=== PATIENT | male | born 1965 | race Two or more races ===

== ENCOUNTER 2017-01-13 15:41 | Inpatient (IN) | payer OTHER ==
[2017-01-13 18:28] VITALS: BMI 22.1
--- NOTE | 2017-01-13 20:06 | HP ---
COWS - Scale Resting Pulse: 0= [place] 80 or Below Sweatin=Flushed/Facial Moisture Restless Observation: 3= Extraneous Movement Pupil Size: 1= Pupils >than Normal Bone or Joint Aches: 2= Severe Diffuse Aches Runny Nose/ Eye Tearin= Runny Nose/Eyes GI Upset > 30mins: 2= Nausea/Diarrhea Tremor Observation: 2= Slight Tremor Visible Yawning Observation: 1= 1-2x During Session Anxiety or Irritability: 2=Irritable/Anxious Goose Flesh Skin: 0=Smooth Skin COWS Score: 17 Admission ROS S - [facility] Chief Complaint: WITHDRAWAL SYMPTOMS Allergies/Adverse Reactions: Allergies Allergy/AdvReac Type Severity Reaction Status Date / Time No Known Allergies Allergy Verified 01/13/17 18:42 History of Present Illness: 51 Y.O. MAN WITH AN EXTENSIVE HISTORY OF DRUG DEPENDENCE IS SEEKING DETOX. HE WAS LAST HERE FOR DETOX IN 2013. HE STATES HE DOES NOT HAVE A SIGNIFICANT PERIOD OF SOBRIETY. Exam Limitations: No Limitations - Ebola screening Have you traveled outside of the country in the last 21 days: No (N) Have you had contact with anyone from an Ebola affected area: No Have you been sick,other than usual withdrawal symptoms: No Do you have a fever: No - Review of Systems Constitutional: Chills, Diaphoresis, Changes in sleep EENT: reports: Blurred Vision, Double Vision, Tearing Respiratory: reports: No Symptoms reported Cardiac: reports: No Symptoms Reported GI: reports: No Symptoms Reported : reports: Frequency Musculoskeletal: reports: Back Pain Integumentary: reports: Lesions Neuro: reports: Headache, Tremors Endocrine: reports: No Symptoms Reported Hematology: reports: No Symptoms Reported Psychiatric: reports: Anxious, Depressed Other Systems: Reviewed and Negative Patient History - Patient Medical History Hx Anemia: No Hx Asthma: No Hx Chronic Obstructive Pulmonary Disease (COPD): No Hx Cancer: No Hx Cardiac Disorders: No Hx Congestive Heart Failure: No Hx Hypertension: No Hx Hypercholesterolemia: No Hx Pacemaker: No HX Cerebrovascular Accident: No Hx Seizures: No Hx Dementia: No Hx Diabetes: No Hx Gastrointestinal Disorders: No Hx Liver Disease: No Hx Genitourinary Disorders: No Hx Sexually Transmitted Disorders: Yes (gonorrhea) Hx Renal Disease (ESRD): No Hx Thyroid Disease: No Hx Human Immunodeficiency Virus (HIV): No Hx Hepatitis C: Yes (COMPLETED [place] ) Hx Depression: Yes Hx Suicide Attempt: No Hx Bipolar Disorder: Yes (NOT ON MEDS ) Hx Schizophrenia: No - Patient Surgical History Past Surgical History: Yes Hx Neurologic Surgery: No Hx Cataract Extraction: No Hx Cardiac Surgery: No Hx Lung Surgery: No Hx Breast Surgery: No Hx Breast Biopsy: No Hx Abdominal Surgery: No Hx Appendectomy: No Hx Cholecystectomy: No Hx Genitourinary Surgery: No Hx Section: No Hx Orthopedic Surgery: No Other Surgical History: laceration, left side of neck Anesthesia Reaction: No - PPD History Previous Implant?: Yes Documented Results: Negative w/o proof PPD to be Administered?: Yes - Reproductive History Patient is a Female of Child Bearing Age (11 -55 yrs old): No - Smoking Cessation Smoking history: Current every day smoker Have you smoked in the past 12 months: Yes Aproximately how many cigarettes per day: 20 Cigars Per Day: 0 Hx Chewing Tobacco Use: No Initiated information on smoking cessation: Yes 'Breaking Loose' booklet given: 01/13/17 - Substance & Tx. History Hx Alcohol Use: No Hx Substance Use: Yes Substance Use Type: Heroin Hx Substance Use Treatment: Yes - Substances Abused Heroin Route: Inhalation Frequency: Daily Amount used: 20 BAGS Age of first use: 16 Date of Last Use: 01/13/17 Family Disease History - Family Disease History Family Disease History: Diabetes: Sister, Heart Disease: Sister Admission Physical Exam [facility] - Vital Signs Vital Signs: Vital Signs - 24 hr 01/13/17 18:26 Temperature 97.8 F Pulse Rate 62 Respiratory 20 Rate Blood Pressure 116/64 - Physical General Appearance: Yes: Disheveled, Tremorous, Anxious HEENTM: Yes: Normocephalic, Normal Voice Respiratory: Yes: Chest Non-Tender, Lungs Clear, Normal Breath Sounds, No Respiratory Distress, No Accessory Muscle Use Neck: Yes: No masses,lesions,Nodules, Trachea in good position Breast: Yes: Breast Exam Deferred Cardiology: Yes: Regular Rhythm, Regular Rate, S1, S2 Abdominal: Yes: Normal Bowel Sounds, Non Tender, Flat, Soft Genitourinary: Yes: Within Normal Limits Back: Yes: Normal Inspection Musculoskeletal: Yes: Gait Steady, Back pain Extremities: Yes: Normal Range of Motion, Non-Tender, Tremors Neurological: Yes: Alert, Normal Mood/Affect, Normal Response Integumentary: Yes: Normal Color, Dry, Warm Lymphatic: Yes: Within Normal Limits - Diagnostic (1) Heroin dependence Current Visit: Yes Status: Chronic (2) History of hepatitis C virus infection Current Visit: No Status: Resolved Cleared for Admission [facility] - Detox or Rehab [facility] Level of Care: Medically Managed Detox Regimen/Protocol: Methadone [facility] Breath Alcohol Content Breath Alcohol Content: 0 Urine Drug Screen - Results Drug Screen Negative: No Urine Drug Screen Results: OPI-Opiates, OXY-Oxycodone
[2017-01-13] MEDS ORDERED: MAGNESIUM CITRATE 300 ML BOTTLE PO PRN (20:12)
[2017-01-13] MEDS ORDERED: hydrOXYzine PAMOATE 50 MG CAPSULE (FP) PO PRN (20:12)
[2017-01-13] MEDS ORDERED: LOPERAMIDE HCL 2 MG CAPSULE PO PRN (20:12)
[2017-01-13] MEDS ORDERED: NICOTINE POLACRILEX 2 MG GUM BC PRN (20:12)
[2017-01-13] MEDS ORDERED: MAG HYDROX/AL HYDROX/SIMETH 30 ML UNIT-DOSE CUP PO PRN (20:12)
[2017-01-13] MEDS ORDERED: guaiFENesin/D-METHORPHAN HB 10 ML UNIT-DOSE CUPS PO PRN (20:12)
[2017-01-13] MEDS ORDERED: IBUPROFEN 400 MG TABLET (FP) PO PRN (20:12)
[2017-01-13] MEDS ORDERED: MAGNESIUM HYDROX 2400MG/30ML ORAL SUSPENSION 30 ML CUP PO PRN (20:12)
[2017-01-13] MEDS ORDERED: METHADONE HCL 10 MG TABLET (FOR DETOX USE ONLY) PO ONE ×2 (20:12→23:00)
[2017-01-13] MEDS ORDERED: P-EPHED 60MG/TRIPROLIDI 2.5MG TABLET PO PRN (20:12)
[2017-01-13] MEDS ORDERED: diphenhydrAMINE HCL 50 MG CAPSULE PO PRN (20:12)
[2017-01-13] MEDS ORDERED: MENTHOL/PHENOL 1 EACH UD MM PRN (20:12)
[2017-01-13] MEDS ORDERED: ACETAMINOPHEN 325 MG TABLET (FP) PO PRN (20:12)
[2017-01-13] MEDS ORDERED: METHADONE HCL 10 MG TABLET (FOR DETOX USE ONLY) ONE (22:45)
[2017-01-13] MEDS: diazePAM 5 MG TABLET PO PRN (22:48)
[2017-01-13] MEDS: THIAMINE HCL 100 MG TABLET (FP) PO SCH (22:48)
[2017-01-14] MEDS: diazePAM 5 MG TABLET PO PRN (05:36)
[2017-01-14] MEDS ORDERED: METHADONE HCL 10 MG TABLET (FOR DETOX USE ONLY) PO ONE (10:00)
[2017-01-14 10:03] LABS: MCHC 33.6 g/dl (32.0-35.9); MEAN CELL VOLUME 89.2 fl (80-96); MEAN PLT VOLUME 8.8 fl (7.5-11.1); PLATELET COUNT 141 K/MM3 (134-434); RDW 13.5 % (11.9-15.9); WHITE BLOOD COUNT 2.9 K/mm3 (4.0-10.0)
[2017-01-14] MEDS: PRENATAL VITAMINS W/ FOLIC ACID TABLET (FP) PO SCH (10:37)
[2017-01-14 10:39] LABS: ALBUMIN 3.5 g/dl (3.4-5.0); ALK PHOS 113 U/L (45-117); ANION GAP 14 (8-16); BILIRUBIN,TOTAL 0.4 mg/dL (0.2-1.0); CALCIUM 8.9 mg/dL (8.5-10.1); CO2 23 mmol/L (21-32); CREATININE 1.1 mg/dL (0.7-1.3); GLUCOSE,RANDOM 175 mg/dL (74-106); SGOT/AST 114 U/L (15-37); SGPT/ALT 176 U/L (12-78); TOT PROT 7.7 g/dl (6.4-8.2)
[2017-01-14] MEDS ORDERED: POTASSIUM CHLORIDE TABS 20 MEQ TABLET.ER (FP) PO ONE (11:03)
--- NOTE | 2017-01-14 11:03 | PN ---
S COWS - Scale Resting Pulse: 1= [place] 81-100 Sweatin= Chills/Flushing Restless Observation: 3= Extraneous Movement Pupil Size: 2= Moderately Dilated Bone or Joint Aches: 4=Acute Joint/Muscle Pain Runny Nose/ Eye Tearin= Nasal Congestion GI Upset > 30mins: 1= Stomach Cramp Tremor Observation of Outstretched Hands: 1= Tremor [place], Not Seen Yawning Observation: 1= 1-2x During Session Anxiety or Irritability: 2=Irritable/Anxious Goose Flesh Skin: 0=Smooth Skin COWS Score: 17 S Progress Note (SOAP) Subjective: ANXIETY,SWEATS,RESTLESSNESS,INTERMITTENT SLEEP. Objective: 01/14/17 11:02 Vital Signs Temperature 97.8 F 01/14/17 09:33 Pulse Rate 84 01/14/17 09:33 Respiratory Rate 20 01/14/17 09:33 Blood Pressure 148/94 01/14/17 09:33 O2 Sat by Pulse Oximetry (%) Laboratory Last Values WBC 2.9 K/mm3 (4.0-10.0) L 01/14/17 07:00 RBC 4.72 M/mm3 (4.00-5.60) 01/14/17 07:00 Hgb 14.1 GM/dL (11.7-16.9) 01/14/17 07:00 Hct 42.1 % (35.4-49) 01/14/17 07:00 MCV 89.2 fl (80-96) 01/14/17 07:00 MCHC 33.6 g/dl (32.0-35.9) 01/14/17 07:00 RDW 13.5 % (11.9-15.9) 01/14/17 07:00 Plt Count 141 K/MM3 (134-434) D 01/14/17 07:00 MPV 8.8 fl (7.5-11.1) 01/14/17 07:00 Sodium 142 mmol/L (136-145) 01/14/17 07:00 Potassium 3.4 mmol/L (3.5-5.1) L D 01/14/17 07:00 Chloride 105 mmol/L (98-107) 01/14/17 07:00 Carbon Dioxide 23 mmol/L (21-32) D 01/14/17 07:00 Anion Gap 14 (8-16) 01/14/17 07:00 BUN 16 mg/dL (7-18) 01/14/17 07:00 Creatinine 1.1 mg/dL (0.7-1.3) 01/14/17 07:00 Creat Clearance w eGFR > 60 (>60) 01/14/17 07:00 Random Glucose 175 mg/dL (74-106) H D 01/14/17 07:00 Calcium 8.9 mg/dL (8.5-10.1) 01/14/17 07:00 Total Bilirubin 0.4 mg/dL (0.2-1.0) 01/14/17 07:00 AST 114 U/L (15-37) H D 01/14/17 07:00 ALT 176 U/L (12-78) H D 01/14/17 07:00 Alkaline Phosphatase 113 U/L (45-117) D 01/14/17 07:00 Total Protein 7.7 g/dl (6.4-8.2) 01/14/17 07:00 Albumin 3.5 g/dl (3.4-5.0) 01/14/17 07:00 K+=3.4 Assessment: 01/14/17 11:03 WITHDRAWAL SX BORDERLINE HYPOKALEMIA Plan: CONTINUE DETOX [facility]UR DIRECTED
--- NOTE | 2017-01-14 13:33 | CONSULT ---
[facility] Psychiatric Consult - Data Date of interview: 01/14/17 Admission source: [facility]
--- NOTE | 2017-01-14 13:42 | EKG ---
Test Reason : Blood Pressure : / mmHG Vent. Rate : 056 BPM Atrial Rate : 056 BPM P-R Int : 228 ms QRS Dur : 080 ms QT Int : 432 ms P-R-T Axes : 075 060 045 degrees QTc Int : 416 ms SINUS BRADYCARDIA WITH 1ST DEGREE A-V BLOCK OTHERWISE NORMAL ECG NO PREVIOUS ECGS AVAILABLE Confirmed by SAMM HERRERA, SAVANNAH ([id number]) on 01/14/2017 1:42:06 PM Referred By: Nelson Swartz Confirmed By:SAVANNAH QUIJANO MD
--- NOTE | 2017-01-14 16:09 | CONSULT ---
[facility] Psychiatric Consult - Data Date of interview: 01/14/17 Admission source: [facility] Identifying data: Readmission to [facility] for this 51 y/o [place] male seeking detox treatment for alcohol and heroin dependence.Patient is single ( common-law spouse),a father of one,domiciled,unemployed and supported on SSI benefits. Substance Abuse History: - Smoking Cessation. Smoking history: Current every day smoker. Have you smoked in the past 12 months: Yes. Aproximately how many cigarettes per day: 20. Cigars Per Day: 0. Hx Chewing Tobacco Use: No. Initiated information on smoking cessation: Yes. 'Breaking Loose' booklet given : 01/13/17. - Substance & Tx. History. Hx Alcohol Use: No. Hx Substance Use: Yes. Substance Use Type: Heroin. Hx Substance Use Treatment: Yes. - Substances Abused. Heroin. Route: Inhalation. Frequency: Daily. Amount used: 20 BAGS. Age of first use: 16. Date of Last Use: 01/13/17. Confirmed by patient. Medical History: Arthritis,hepatitis C and a history of treatment for gonorrhea. Psychiatric History: Patient denies history of psychiatric hospitalizations but, on the other hand,he reports exposure to psychiatric treatment during his incarceration some years ago.Mr Arsen states that he was diagnosed with schizophrenia/prescribed zyprexa 5 mg/hs + ambien 10 mg/hs.No connection with OPD care providers at this time.Precarious situation for a regular follow up.Patient denies history of suicide attempts. Physical/Sexual Abuse/Trauma History: Patient denies. Additional Comment: Urine Drug Screen Results: OPI-Opiates, OXY-Oxycodone.Noted. Mental Status Exam - Mental Status Exam Alert and Oriented to: Time, Place, Person Cognitive Function: Good Patient Appearance: Well Groomed Mood: Nervous, Anxious, Apprehensive Affect: Mood Congruent, Constricted Patient Behavior: Fatigued, Appropriate, Cooperative Speech Pattern: Clear Voice Loudness: Normal Thought Process: Goal Oriented Hallucinations: Denies Suicidal Ideation: Denies Homicidal Ideation: Denies Insight/Judgement: Poor Sleep: Poorly, Difficulty falling asleep Appetite: Good Muscle strength/Tone: Normal Gait/Station: Normal Psychiatric Findings - Problem List ([place] 1, 2,3) (1) Heroin dependence Current Visit: Yes Status: Chronic (2) Nicotine dependence Current Visit: Yes Status: Acute (3) Schizophrenia, paranoid type Current Visit: Yes Status: Chronic (4) Insomnia Current Visit: Yes Status: Acute - Initial Treatment Plan Initial Treatment Plan: Psychoeducation.Detoxification.Medications : zyprexa 5 mg po hs + zolpidem 10 mg po hs prn.Side effects/benefits of each drug discussed with the patient.He agrees with this plan of care.Observation.
[2017-01-14 18:47] LABS: URINE APPEARANCE CLEAR; URINE BILIRUBIN NEGATIVE (NEGATIVE); URINE BLOOD NEGATIVE (NEGATIVE); URINE COLOR DKYELLOW; URINE GLUCOSE (UA) NEGATIVE (NEGATIVE); URINE KETONE NEGATIVE (NEGATIVE); URINE LEUK ESTERASE NEGATIVE (NEGATIVE); URINE NITRITE NEGATIVE (NEGATIVE); URINE PROTEIN NEGATIVE (NEGATIVE); URINE UROBILINOGEN 4.0 E.U/dl E.U./dl (0.2-1.0)
[2017-01-14] MEDS: POTASSIUM CHLORIDE TABS 20 MEQ TABLET.ER (FP) PO SCH (22:40)
[2017-01-14] MEDS: OLANZapine 5 MG TABLET PO SCH (22:40)
[2017-01-14] MEDS: ZOLPIDEM TARTRATE 10 MG TABLET (PARK CARE ONLY) PO PRN (22:40)
[2017-01-14] MEDS: THIAMINE HCL 100 MG TABLET (FP) PO SCH (22:40)
[2017-01-15] MEDS: diazePAM 5 MG TABLET PO PRN (06:25)
[2017-01-15] MEDS ORDERED: METHADONE HCL 5 MG TABLET (FOR DETOX USE ONLY) PO ONE (10:00)
[2017-01-15] MEDS: PRENATAL VITAMINS W/ FOLIC ACID TABLET (FP) PO SCH (10:52)
[2017-01-15] MEDS: POTASSIUM CHLORIDE TABS 20 MEQ TABLET.ER (FP) PO SCH ×2 (10:52→22:53)
--- NOTE | 2017-01-15 12:08 | PN ---
[facility] COWS - Scale Resting Pulse: 0= [place] 80 or Below Sweatin= Chills/Flushing Restless Observation: 3= Extraneous Movement Pupil Size: 2= Moderately Dilated Bone or Joint Aches: 4=Acute Joint/Muscle Pain Runny Nose/ Eye Tearin= Nasal Congestion GI Upset > 30mins: 1= Stomach Cramp Tremor Observation of Outstretched Hands: 2= Slight Tremor Visible Yawning Observation: 1= 1-2x During Session Anxiety or Irritability: 2=Irritable/Anxious Goose Flesh Skin: 0=Smooth Skin COWS Score: 17 BHS Progress Note (SOAP) Subjective: ANXIETY,SWEATS,CHILLS. Objective: 01/15/17 12:07 Vital Signs Temperature 98.8 F 01/15/17 09:03 Pulse Rate 64 01/15/17 09:03 Respiratory Rate 20 01/15/17 09:03 Blood Pressure 111/71 01/15/17 09:03 O2 Sat by Pulse Oximetry (%) Laboratory Last Values WBC 2.9 K/mm3 (4.0-10.0) L 01/14/17 07:00 RBC 4.72 M/mm3 (4.00-5.60) 01/14/17 07:00 Hgb 14.1 GM/dL (11.7-16.9) 01/14/17 07:00 Hct 42.1 % (35.4-49) 01/14/17 07:00 MCV 89.2 fl (80-96) 01/14/17 07:00 MCHC 33.6 g/dl (32.0-35.9) 01/14/17 07:00 RDW 13.5 % (11.9-15.9) 01/14/17 07:00 Plt Count 141 K/MM3 (134-434) D 01/14/17 07:00 MPV 8.8 fl (7.5-11.1) 01/14/17 07:00 Sodium 142 mmol/L (136-145) 01/14/17 07:00 Potassium 3.4 mmol/L (3.5-5.1) L D 01/14/17 07:00 Chloride 105 mmol/L (98-107) 01/14/17 07:00 Carbon Dioxide 23 mmol/L (21-32) D 01/14/17 07:00 Anion Gap 14 (8-16) 01/14/17 07:00 BUN 16 mg/dL (7-18) 01/14/17 07:00 Creatinine 1.1 mg/dL (0.7-1.3) 01/14/17 07:00 Creat Clearance w eGFR > 60 (>60) 01/14/17 07:00 Random Glucose 175 mg/dL (74-106) H D 01/14/17 07:00 Calcium 8.9 mg/dL (8.5-10.1) 01/14/17 07:00 Total Bilirubin 0.4 mg/dL (0.2-1.0) 01/14/17 07:00 AST 114 U/L (15-37) H D 01/14/17 07:00 ALT 176 U/L (12-78) H D 01/14/17 07:00 Alkaline Phosphatase 113 U/L (45-117) D 01/14/17 07:00 Total Protein 7.7 g/dl (6.4-8.2) 01/14/17 07:00 Albumin 3.5 g/dl (3.4-5.0) 01/14/17 07:00 Urine Color Dkyellow 01/14/17 13:20 Urine Appearance Clear 01/14/17 13:20 Urine pH 6.0 (5.0-8.0) 01/14/17 13:20 Ur Specific [place] 1.024 (1.001-1.035) 01/14/17 13:20 Urine Protein Negative (NEGATIVE) 01/14/17 13:20 Urine Glucose (UA) Negative (NEGATIVE) 01/14/17 13:20 Urine Ketones Negative (NEGATIVE) 01/14/17 13:20 Urine Blood Negative (NEGATIVE) 01/14/17 13:20 Urine Nitrite Negative (NEGATIVE) 01/14/17 13:20 Urine Bilirubin Negative (NEGATIVE) 01/14/17 13:20 Urine Urobilinogen 4.0 e.u/dl E.U./dl (0.2-1.0) 01/14/17 13:20 Ur Leukocyte Esterase Negative (NEGATIVE) 01/14/17 13:20 RPR Titer Nonreactive (NONREACTIVE) D 01/14/17 07:00 Assessment: 01/15/17 12:07 WITHDRAWAL SX Plan: CONTINUE DETOX
[2017-01-15] MEDS: OLANZapine 5 MG TABLET PO SCH (22:53)
[2017-01-15] MEDS: THIAMINE HCL 100 MG TABLET (FP) PO SCH (22:53)
[2017-01-15] MEDS: ZOLPIDEM TARTRATE 10 MG TABLET (PARK CARE ONLY) PO PRN (22:54)
--- NOTE | 2017-01-16 09:46 | PN ---
BHS Progress Note (SOAP) Subjective: Sweating,interrupted sleep,restless Objective: 01/16/17 09:44 Vital Signs - 8 hr 01/16/17 01/16/17 01/16/17 04:00 06:43 09:27 Temperature 97.1 F L 97.8 F Pulse Rate 61 76 Respiratory 18 18 18 Rate Blood Pressure 109/73 101/67 Laboratory Tests 01/14/17 01/14/17 01/14/17 07:00 07:00 07:00 WBC 2.9 L RBC 4.72 Hgb 14.1 Hct 42.1 MCV 89.2 MCHC 33.6 RDW 13.5 Plt Count 141 D MPV 8.8 Sodium 142 Potassium 3.4 L D Chloride 105 Carbon Dioxide 23 D Anion Gap 14 BUN 16 Creatinine 1.1 Creat Clearance w eGFR > 60 Random Glucose 175 H D Calcium 8.9 Total Bilirubin 0.4 AST 114 H D ALT 176 H D Alkaline Phosphatase 113 D Total Protein 7.7 Albumin 3.5 Urine Color Urine Appearance Urine pH Ur Specific [place] Urine Protein Urine Glucose (UA) Urine Ketones Urine Blood Urine Nitrite Urine Bilirubin Urine Urobilinogen Ur Leukocyte Esterase RPR Titer Nonreactive D 01/14/17 13:20 WBC RBC Hgb Hct MCV MCHC RDW Plt Count MPV Sodium Potassium Chloride Carbon Dioxide Anion Gap BUN Creatinine Creat Clearance w eGFR Random Glucose Calcium Total Bilirubin AST ALT Alkaline Phosphatase Total Protein Albumin Urine Color Dkyellow Urine Appearance Clear Urine pH 6.0 Ur Specific [place] 1.024 Urine Protein Negative Urine Glucose (UA) Negative Urine Ketones Negative Urine Blood Negative Urine Nitrite Negative Urine Bilirubin Negative Urine Urobilinogen 4.0 e.u/dl Ur Leukocyte Esterase Negative RPR Titer Labs noted, k-dur noted Assessment: 01/16/17 09:45 Withdrawal sx Plan: Continue detox
[2017-01-16] MEDS ORDERED: METHADONE HCL 5 MG TABLET (FOR DETOX USE ONLY) PO ONE (10:00)
[2017-01-16] MEDS: POTASSIUM CHLORIDE TABS 20 MEQ TABLET.ER (FP) PO SCH ×2 (10:44→22:55)
[2017-01-16] MEDS: PRENATAL VITAMINS W/ FOLIC ACID TABLET (FP) PO SCH (10:44)
[2017-01-16] MEDS: THIAMINE HCL 100 MG TABLET (FP) PO SCH (22:54)
[2017-01-16] MEDS: OLANZapine 5 MG TABLET PO SCH (22:55)
[2017-01-16] MEDS: ZOLPIDEM TARTRATE 10 MG TABLET (PARK CARE ONLY) PO PRN (22:55)
[2017-01-17] MEDS ORDERED: METHADONE HCL 10 MG TABLET (FOR DETOX USE ONLY) PO ONE (10:00)
[2017-01-17] MEDS: PRENATAL VITAMINS W/ FOLIC ACID TABLET (FP) PO SCH (10:38)
--- NOTE | 2017-01-17 14:21 | PN ---
BHS Progress Note (SOAP) Subjective: Interrupted sleep, Body Aches, Sweating, Tremors, H/A. Objective: PT. A & O X (DISORIENTED ABOUT DAY / DATE). PT. OBSERVED AMBULATING ON UNIT. 01/17/17 14:18 Vital Signs Temperature 96.8 F L 01/17/17 13:58 Pulse Rate 85 01/17/17 13:58 Respiratory Rate 18 01/17/17 13:58 Blood Pressure 110/72 01/17/17 13:58 O2 Sat by Pulse Oximetry (%) Laboratory Last Values WBC 2.9 K/mm3 (4.0-10.0) L 01/14/17 07:00 RBC 4.72 M/mm3 (4.00-5.60) 01/14/17 07:00 Hgb 14.1 GM/dL (11.7-16.9) 01/14/17 07:00 Hct 42.1 % (35.4-49) 01/14/17 07:00 MCV 89.2 fl (80-96) 01/14/17 07:00 MCHC 33.6 g/dl (32.0-35.9) 01/14/17 07:00 RDW 13.5 % (11.9-15.9) 01/14/17 07:00 Plt Count 141 K/MM3 (134-434) D 01/14/17 07:00 MPV 8.8 fl (7.5-11.1) 01/14/17 07:00 Sodium 142 mmol/L (136-145) 01/14/17 07:00 Potassium 3.4 mmol/L (3.5-5.1) L D 01/14/17 07:00 Chloride 105 mmol/L (98-107) 01/14/17 07:00 Carbon Dioxide 23 mmol/L (21-32) D 01/14/17 07:00 Anion Gap 14 (8-16) 01/14/17 07:00 BUN 16 mg/dL (7-18) 01/14/17 07:00 Creatinine 1.1 mg/dL (0.7-1.3) 01/14/17 07:00 Creat Clearance w eGFR > 60 (>60) 01/14/17 07:00 Random Glucose 175 mg/dL (74-106) H D 01/14/17 07:00 Calcium 8.9 mg/dL (8.5-10.1) 01/14/17 07:00 Total Bilirubin 0.4 mg/dL (0.2-1.0) 01/14/17 07:00 AST 114 U/L (15-37) H D 01/14/17 07:00 ALT 176 U/L (12-78) H D 01/14/17 07:00 Alkaline Phosphatase 113 U/L (45-117) D 01/14/17 07:00 Total Protein 7.7 g/dl (6.4-8.2) 01/14/17 07:00 Albumin 3.5 g/dl (3.4-5.0) 01/14/17 07:00 Urine Color Dkyellow 01/14/17 13:20 Urine Appearance Clear 01/14/17 13:20 Urine pH 6.0 (5.0-8.0) 01/14/17 13:20 Ur Specific [place] 1.024 (1.001-1.035) 01/14/17 13:20 Urine Protein Negative (NEGATIVE) 01/14/17 13:20 Urine Glucose (UA) Negative (NEGATIVE) 01/14/17 13:20 Urine Ketones Negative (NEGATIVE) 01/14/17 13:20 Urine Blood Negative (NEGATIVE) 01/14/17 13:20 Urine Nitrite Negative (NEGATIVE) 01/14/17 13:20 Urine Bilirubin Negative (NEGATIVE) 01/14/17 13:20 Urine Urobilinogen 4.0 e.u/dl E.U./dl (0.2-1.0) 01/14/17 13:20 Ur Leukocyte Esterase Negative (NEGATIVE) 01/14/17 13:20 RPR Titer Nonreactive (NONREACTIVE) D 01/14/17 07:00 LABS NOTED. 01/17/17 14:20 Assessment: 01/17/17 14:19 WITHDRAWAL SYMPTOMS. Plan: CONTINUE DETOX. K, 20 MEQ X 1 NOW AND THEN BID AFTER. ADVISED PATIENT TO FOLLOW-UP WITH [employer] / REHAB MEDICAL PROVIDER AFTER DISCHARGE FROM DETOX FOR GENERAL MEDICAL ASSESSMENT AND FOR ANY ABNORMAL ADMISSION LAB VALUES.
[2017-01-17] MEDS ORDERED: POTASSIUM CHLORIDE TABS 20 MEQ TABLET.ER (FP) PO ONE (15:00)
[2017-01-17] MEDS ORDERED: POTASSIUM CHLORIDE TABS 20 MEQ TABLET.ER (FP) PO SCH (22:00)
[2017-01-17] MEDS: OLANZapine 5 MG TABLET PO SCH (22:33)
[2017-01-17] MEDS: THIAMINE HCL 100 MG TABLET (FP) PO SCH (22:33)
[2017-01-18] MEDS ORDERED: METHADONE HCL 5 MG TABLET (FOR DETOX USE ONLY) PO ONE (06:00)
[2017-01-18 06:47] VITALS: BP 108/67; PULSE 63; TEMP 96.7
--- NOTE | 2017-01-18 16:05 | DS ---
[facility] Detox Discharge Summary Admission Date: 01/13/17 Discharge Date: 01/18/17 - History Present History: Opioid Dependence Additional Comments: ADVISED PATIENT TO FOLLOW-UP WITH [facility] / REHAB MEDICAL PROVIDER AFTER DISCHARGE FROM DETOX FOR GENERAL MEDICAL ASSESSMENT AND FOR ABNORMAL ADMISSION LAB VALUES. Pertinent Past History: Hep C (Treated), Depression, Bi-Polar disorder. - Physical Exam Results Vital Signs: Vital Signs Temperature 96.7 F L 01/18/17 06:46 Pulse Rate 63 01/18/17 06:46 Respiratory Rate 18 01/18/17 06:46 Blood Pressure 108/67 01/18/17 06:46 O2 Sat by Pulse Oximetry (%) Pertinent Admission Physical Exam Findings: WITHDRAWAL SYMPTOMS. Laboratory Last Values WBC 2.9 K/mm3 (4.0-10.0) L 01/14/17 07:00 RBC 4.72 M/mm3 (4.00-5.60) 01/14/17 07:00 Hgb 14.1 GM/dL (11.7-16.9) 01/14/17 07:00 Hct 42.1 % (35.4-49) 01/14/17 07:00 MCV 89.2 fl (80-96) 01/14/17 07:00 MCHC 33.6 g/dl (32.0-35.9) 01/14/17 07:00 RDW 13.5 % (11.9-15.9) 01/14/17 07:00 Plt Count 141 K/MM3 (134-434) D 01/14/17 07:00 MPV 8.8 fl (7.5-11.1) 01/14/17 07:00 Sodium 142 mmol/L (136-145) 01/14/17 07:00 Potassium 3.4 mmol/L (3.5-5.1) L D 01/14/17 07:00 Chloride 105 mmol/L (98-107) 01/14/17 07:00 Carbon Dioxide 23 mmol/L (21-32) D 01/14/17 07:00 Anion Gap 14 (8-16) 01/14/17 07:00 BUN 16 mg/dL (7-18) 01/14/17 07:00 Creatinine 1.1 mg/dL (0.7-1.3) 01/14/17 07:00 Creat Clearance w eGFR > 60 (>60) 01/14/17 07:00 Random Glucose 175 mg/dL (74-106) H D 01/14/17 07:00 Calcium 8.9 mg/dL (8.5-10.1) 01/14/17 07:00 Total Bilirubin 0.4 mg/dL (0.2-1.0) 01/14/17 07:00 AST 114 U/L (15-37) H D 01/14/17 07:00 ALT 176 U/L (12-78) H D 01/14/17 07:00 Alkaline Phosphatase 113 U/L (45-117) D 01/14/17 07:00 Total Protein 7.7 g/dl (6.4-8.2) 01/14/17 07:00 Albumin 3.5 g/dl (3.4-5.0) 01/14/17 07:00 Urine Color Dkyellow 01/14/17 13:20 Urine Appearance Clear 01/14/17 13:20 Urine pH 6.0 (5.0-8.0) 01/14/17 13:20 Ur Specific [place] 1.024 (1.001-1.035) 01/14/17 13:20 Urine Protein Negative (NEGATIVE) 01/14/17 13:20 Urine Glucose (UA) Negative (NEGATIVE) 01/14/17 13:20 Urine Ketones Negative (NEGATIVE) 01/14/17 13:20 Urine Blood Negative (NEGATIVE) 01/14/17 13:20 Urine Nitrite Negative (NEGATIVE) 01/14/17 13:20 Urine Bilirubin Negative (NEGATIVE) 01/14/17 13:20 Urine Urobilinogen 4.0 e.u/dl E.U./dl (0.2-1.0) 01/14/17 13:20 Ur Leukocyte Esterase Negative (NEGATIVE) 01/14/17 13:20 RPR Titer Nonreactive (NONREACTIVE) D 01/14/17 07:00 LABS NOTED. - Treatment Hospital Course: Detox Protocol Followed, Detoxed Safely, Responded well, Discharged Condition Good Patient has Accepted a Rehab Referral to: NO - PATIENT ELECTING TO GO HOME. 12- STEP/NA PROGRAMS RECOMENDED. - Medication Discharge Medications: Ambulatory Orders Olanzapine [Zyprexa -] 5 mg PO DAILY #30 tablet 07/12/14 Olanzapine [Zyprexa -] 5 mg PO HS #30 tablet 01/14/17 - Diagnosis (1) Insomnia Status: Chronic Qualifiers: Insomnia type: unspecified Qualified Code(s): G47.00 - Insomnia, unspecified (2) Nicotine dependence Status: Chronic Qualifiers: Nicotine product type: cigarettes Substance use status: uncomplicated Qualified Code(s): F17.210 - Nicotine dependence, cigarettes, uncomplicated (3) Schizophrenia, paranoid type Status: Chronic (4) Opioid dependence with withdrawal Status: Acute - AMA Did Patient Leave Against Medical Advice: No
== END 2017-01-18 09:03 | disposition home or self-care (01) | DRG 773 ==
LOC: YASAS 15:41 → Y3N 19:10
PROVIDERS: ADMIT Internal Medicine; ATTEND Internal Medicine
PROC: HZ2ZZZZ Detoxification Services for Substance Abuse Treatment (ICD-10-PCS; principal; 2017-01-18)
DX: F11.23 Opioid dependence with withdrawal (principal); F17.210 Nicotine dependence, cigarettes, uncomplicated; F20.0 Paranoid schizophrenia; F31.9 Bipolar disorder, unspecified; F34.1 Dysthymic disorder; G47.00 Insomnia, unspecified; B18.2 Chronic viral hepatitis C; Z86.19 Personal history of other infectious and parasitic diseases
CPT/HCPCS: 36415; 80053; 81003; 85027; 86593; 93005; 93010

== ENCOUNTER 2017-03-11 09:47 | Inpatient (IN) | payer OTHER ==
[2017-03-11 10:03] VITALS: BMI 21.2
--- NOTE | 2017-03-11 12:41 | HP ---
COWS - Scale Resting Pulse: 1= [place] 81-100 Sweatin= Chills/Flushing Restless Observation: 3= Extraneous Movement Pupil Size: 2= Moderately Dilated Bone or Joint Aches: 4=Acute Joint/Muscle Pain Runny Nose/ Eye Tearin= Runny Nose/Eyes GI Upset > 30mins: 1= Stomach Cramp Tremor Observation: 2= Slight Tremor Visible Yawning Observation: 1= 1-2x During Session Anxiety or Irritability: 1=Feels Anxious/Irritable Goose Flesh Skin: 0=Smooth Skin COWS Score: 18 Admission ROS BHS - HPI Chief Complaint: DETOX TX FOR HEROIN DEPENDENCE Allergies/Adverse Reactions: Allergies Allergy/AdvReac Type Severity Reaction Status Date / Time No Known Allergies Allergy Verified 03/11/17 10:31 History of Present Illness: 51 Y/O H/MALE WITH A HX OF HEROIN DEPENDENCE SEEKING DETOX [place] Exam Limitations: No Limitations - Ebola screening Have you traveled outside of the country in the last 21 days: No Have you had contact with anyone from an Ebola affected area: No Have you been sick,other than usual withdrawal symptoms: No - Review of Systems Constitutional: Chills, Loss of Appetite, Night Sweats, Changes in sleep, Unintentional Wgt. Loss EENT: reports: Blurred Vision, Tearing, Nose Congestion, Dental Problems ( MISSING TEETH) Respiratory: reports: Cough, Productive cough (YELLOW PHLEGM) Cardiac: reports: Lightheadedness GI: reports: Diarrhea, Nausea, Poor Appetite, Vomiting : reports: No Symptoms Reported Musculoskeletal: reports: Back Pain, Joint Pain, Muscle Pain Integumentary: reports: Rash (GENERALIZED HEALED DARK SPOTS.) Neuro: reports: Headache, Tremors, Dizziness Endocrine: reports: No Symptoms Reported Hematology: reports: No Symptoms Reported Psychiatric: reports: No Sypmtoms Reported, Agitated, Anxious Other Systems: Reviewed and Negative Patient History - Patient Medical History Hx Anemia: No Hx Asthma: No Hx Chronic Obstructive Pulmonary Disease (COPD): No Hx Cancer: No Hx Cardiac Disorders: No Hx Congestive Heart Failure: No Hx Hypertension: No Hx Hypercholesterolemia: No Hx Pacemaker: No HX Cerebrovascular Accident: No Hx Seizures: No Hx Dementia: No Hx Diabetes: No Hx Gastrointestinal Disorders: No Hx Liver Disease: No Hx Genitourinary Disorders: No Hx Sexually Transmitted Disorders: Yes (Tx for gonnorhea.) Hx Renal Disease (ESRD): No Hx Thyroid Disease: No Hx Human Immunodeficiency Virus (HIV): No Hx Hepatitis C: Yes (COMPLETED [place] ) Hx Depression: Yes Hx Suicide Attempt: No (DENIES) Hx Bipolar Disorder: Yes (NOT ON MEDS ) Hx Schizophrenia: Yes - Patient Surgical History Past Surgical History: Yes Hx Neurologic Surgery: No Hx Cataract Extraction: No Hx Cardiac Surgery: No Hx Lung Surgery: No Hx Breast Surgery: No Hx Breast Biopsy: No Hx Abdominal Surgery: No Hx Appendectomy: No Hx Cholecystectomy: No Hx Genitourinary Surgery: No Hx Section: No Hx Orthopedic Surgery: No Other Surgical History: laceration, left side of neck Anesthesia Reaction: No - PPD History Previous Implant?: Yes Documented Results: Negative w/proof Implanted On Prior [facility] Admission?: Yes Date: 01/15/17 Results: 0 mm PPD to be Administered?: No - Reproductive History Patient is a Female of Child Bearing Age (11 -55 yrs old): No (MALE) - Smoking Cessation Smoking history: Current every day smoker Have you smoked in the past 12 months: Yes Aproximately how many cigarettes per day: 4 Cigars Per Day: 0 Hx Chewing Tobacco Use: No Initiated information on smoking cessation: Yes 'Breaking Loose' booklet given: 03/11/17 - Substance & Tx. History Hx Alcohol Use: No Hx Substance Use: Yes (HEROIN) Substance Use Type: Heroin Hx Substance Use Treatment: Yes - Substances Abused Heroin Route: Inhalation Frequency: Daily Amount used: 2-3 bags Age of first use: 13 Date of Last Use: 03/10/17 Family Disease History - Family Disease History Family Disease History: Diabetes: Sister, Heart Disease: Sister Admission Physical Exam [facility] - Vital Signs Vital Signs: Vital Signs - 24 hr 03/11/17 10:00 Temperature 101.8 F H Pulse Rate 87 Respiratory 18 Rate Blood Pressure 96/59 - Physical General Appearance: Yes: Moderate Distress, Irritable, Anxious HEENTM: Yes: EOMI, Normocephalic, YANELI, Pharynx Normal Respiratory: Yes: Chest Non-Tender, Lungs Clear, Normal Breath Sounds, No Respiratory Distress Neck: Yes: Supple, Trachea in good position Breast: Yes: Breast Exam Deferred Cardiology: Yes: Regular Rhythm, Regular Rate, S1, S2 Abdominal: Yes: Normal Bowel Sounds, Non Tender, Flat, Soft Genitourinary: Yes: Other (N/C) Back: Yes: Within Normal Limits Musculoskeletal: Yes: full range of Motion, Gait Steady, Back pain Extremities: Yes: Normal Range of Motion, Non-Tender Neurological: Yes: home aid II-XII NML intact, Fully Oriented, Alert Integumentary: Yes: Dry, Warm, Rash (HEALED RASH SCARS ON ARMS) Lymphatic: Yes: Within Normal Limits - Addiitonal Findings: LOW GRAD TEMP 99.3 @12:54 COUGHING SLIGHTLY PRODUCTIVE RUNNY NOSE - Diagnostic (1) Opioid dependence with withdrawal Current Visit: Yes Status: Acute (2) Nicotine dependence Current Visit: Yes Status: Acute Qualifiers: Nicotine product type: cigarettes Substance use status: in withdrawal Qualified Code(s): F17.213 - Nicotine dependence, cigarettes, with withdrawal (3) URI (upper respiratory infection) Current Visit: Yes Status: Acute Qualifiers: URI type: acute nasopharyngitis (common cold) Qualified Code(s): J00 - Acute nasopharyngitis [common cold] Cleared for Admission [facility] - Detox or Rehab [facility] Level of Care: Medically Managed Detox Regimen/Protocol: Methadone [facility] Breath Alcohol Content Breath Alcohol Content: 0 Urine Drug Screen - Results Drug Screen Negative: No Urine Drug Screen Results: OPI-Opiates
[2017-03-11] MEDS ORDERED: MENTHOL/PHENOL 1 EACH UD MM PRN (13:02)
[2017-03-11] MEDS ORDERED: LOPERAMIDE HCL 2 MG CAPSULE PO PRN (13:02)
[2017-03-11] MEDS ORDERED: MAG HYDROX/AL HYDROX/SIMETH 30 ML UNIT-DOSE CUP PO PRN (13:02)
[2017-03-11] MEDS ORDERED: guaiFENesin/D-METHORPHAN HB 10 ML UNIT-DOSE CUPS PO PRN (13:02)
[2017-03-11] MEDS ORDERED: MAGNESIUM HYDROX 2400MG/30ML ORAL SUSPENSION 30 ML CUP PO PRN (13:02)
[2017-03-11] MEDS ORDERED: P-EPHED 60MG/TRIPROLIDI 2.5MG TABLET PO PRN (13:02)
[2017-03-11] MEDS ORDERED: IBUPROFEN 400 MG TABLET (FP) PO PRN (13:02)
[2017-03-11] MEDS ORDERED: diphenhydrAMINE HCL 50 MG CAPSULE PO PRN (13:02)
[2017-03-11] MEDS ORDERED: MAGNESIUM CITRATE 300 ML BOTTLE PO PRN (13:02)
[2017-03-11] MEDS ORDERED: METHADONE HCL 10 MG TABLET (FOR DETOX USE ONLY) PO ONE ×2 (13:43→23:00)
[2017-03-11] MEDS: diazePAM 5 MG TABLET PO PRN (14:48)
[2017-03-11] MEDS: ACETAMINOPHEN 325 MG TABLET (FP) PO PRN (14:49)
[2017-03-11] MEDS: NICOTINE 14 MG/24 HOURS TOPICAL PATCH TD SCH (14:52)
--- NOTE | 2017-03-11 15:51 | EKG ---
Test Reason : Blood Pressure : / mmHG Vent. Rate : 054 BPM Atrial Rate : 054 BPM P-R Int : 232 ms QRS Dur : 080 ms QT Int : 404 ms P-R-T Axes : 072 059 038 degrees QTc Int : 383 ms SINUS BRADYCARDIA WITH 1ST DEGREE A-V BLOCK VOLTAGE CRITERIA FOR LEFT VENTRICULAR HYPERTROPHY ABNORMAL ECG WHEN COMPARED WITH ECG OF 13-JAN-2017 21:57, NO SIGNIFICANT CHANGE WAS FOUND Confirmed by SAMM HERRERA, SAVANNAH ([id number]) on 03/11/2017 3:51:18 PM Referred By: Confirmed By:SAVANNAH QUIJANO MD
[2017-03-11 17:40] LABS: URINE APPEARANCE CLEAR; URINE BILIRUBIN NEGATIVE (NEGATIVE); URINE BLOOD 1+ (NEGATIVE); URINE COLOR YELLOW; URINE GLUCOSE (UA) NEGATIVE (NEGATIVE); URINE KETONE NEGATIVE (NEGATIVE); URINE LEUK ESTERASE NEGATIVE (NEGATIVE); URINE NITRITE NEGATIVE (NEGATIVE); URINE PROTEIN NEGATIVE (NEGATIVE); URINE UROBILINOGEN NEGATIVE E.U./dl (0.2-1.0)
[2017-03-11 18:31] LABS: URINE MUCUS RARE; URINE RBC 2 /hpf (0-3); URINE WBC <1 /hpf (3-5)
[2017-03-11] MEDS: THIAMINE HCL 100 MG TABLET (FP) PO SCH (22:31)
[2017-03-12 03:24] LABS: HIV 1 & 2 AB NEGATIVE; HIV 1 AGp24 NEGATIVE
[2017-03-12] MEDS: diazePAM 5 MG TABLET PO PRN (05:25)
[2017-03-12] MEDS: ACETAMINOPHEN 325 MG TABLET (FP) PO PRN (07:39)
[2017-03-12] MEDS ORDERED: METHADONE HCL 10 MG TABLET (FOR DETOX USE ONLY) PO ONE (10:00)
[2017-03-12 10:03] LABS: MCH 29.5 pg (25.7-33.7); MCHC 33.3 g/dl (32.0-35.9); MEAN CELL VOLUME 88.6 fl (80-96); MEAN PLT VOLUME 9.4 fl (7.5-11.1); RDW 12.7 % (11.9-15.9); WHITE BLOOD COUNT 10.4 K/mm3 (4.0-10.0)
[2017-03-12] MEDS: PRENATAL VITAMINS W/ FOLIC ACID TABLET (FP) PO SCH (10:19)
[2017-03-12] MEDS: NICOTINE 14 MG/24 HOURS TOPICAL PATCH TD SCH (10:19)
[2017-03-12 10:33] LABS: ALBUMIN 3.3 g/dl (3.4-5.0); ALK PHOS 102 U/L (45-117); ANION GAP 7 (8-16); BILIRUBIN,TOTAL 0.5 mg/dL (0.2-1.0); CALCIUM 9.1 mg/dL (8.5-10.1); CO2 28 mmol/L (21-32); COCKROFT - GAULT 59.79; CREATININE 1.1 mg/dL (0.7-1.3); GLUCOSE,RANDOM 113 mg/dL (74-106); SGOT/AST 59 U/L (15-37); SGPT/ALT 76 U/L (12-78); TOT PROT 7.9 g/dl (6.4-8.2)
--- NOTE | 2017-03-12 10:42 | PN ---
S COWS - Scale Resting Pulse: 0= MD 80 or Below Sweatin=Flushed/Facial Moisture Restless Observation: 1= Difficult to Sit Still Pupil Size: 1= Pupils >than Normal Bone or Joint Aches: 2= Severe Diffuse Aches Runny Nose/ Eye Tearin= Nasal Congestion GI Upset > 30mins: 1= Stomach Cramp Tremor Observation of Outstretched Hands: 1= Tremor [place], Not Seen Yawning Observation: 0= None Anxiety or Irritability: 2=Irritable/Anxious Goose Flesh Skin: 0=Smooth Skin COWS Score: 11 S Progress Note (SOAP) Subjective: interrupted sleep, sweats , shakes , headache Objective: 03/12/17 10:38 Vital Signs Temperature 98.1 F 03/12/17 10:28 Pulse Rate 72 03/12/17 10:28 Respiratory Rate 20 03/12/17 10:28 Blood Pressure 96/54 03/12/17 10:28 O2 Sat by Pulse Oximetry (%) Laboratory Tests 03/11/17 03/11/17 03/12/17 12:10 17:00 06:00 WBC 10.4 H D RBC 4.39 Hgb 13.0 Hct 38.9 MCV 88.6 MCHC 33.3 RDW 12.7 MPV 9.4 Sodium Potassium Chloride Carbon Dioxide Anion Gap BUN Creatinine Creat Clearance w eGFR Random Glucose Calcium Total Bilirubin AST ALT Alkaline Phosphatase Total Protein Albumin Urine Color Yellow Urine Appearance Clear Urine pH 5.0 Ur Specific [place] 1.010 Urine Protein Negative Urine Glucose (UA) Negative Urine Ketones Negative Urine Blood 1+ H Urine Nitrite Negative Urine Bilirubin Negative Urine Urobilinogen Negative Ur Leukocyte Esterase Negative Urine RBC 2 Urine WBC <1 Urine Mucus Rare HIV 1&2 Antibody Screen Negative HIV P24 Antigen Negative 03/12/17 06:00 WBC RBC Hgb Hct MCV MCHC RDW MPV Sodium 136 Potassium 4.1 D Chloride 101 Carbon Dioxide 28 D Anion Gap 7 L BUN 15 Creatinine 1.1 Creat Clearance w eGFR > 60 Random Glucose 113 H D Calcium 9.1 Total Bilirubin 0.5 D AST 59 H D ALT 76 D Alkaline Phosphatase 102 Total Protein 7.9 Albumin 3.3 L Urine Color Urine Appearance Urine pH Ur Specific [place] Urine Protein Urine Glucose (UA) Urine Ketones Urine Blood Urine Nitrite Urine Bilirubin Urine Urobilinogen Ur Leukocyte Esterase Urine RBC Urine WBC Urine Mucus HIV 1&2 Antibody Screen HIV P24 Antigen pt aox3 , + tremors neuro intact 03/12/17 10:40 Assessment: 03/12/17 10:39 withdrawal sx's 03/12/17 10:40 Plan: cont. detox increase fluids motrin prn librium prn
--- NOTE | 2017-03-12 10:54 | CONSULT ---
[facility] Psychiatric Consult - Data Date of interview: 03/12/17 Admission source: [facility] Identifying data: This is 51 years old male with psychiatric hospitalization history intoxicated with: Heroin and Nicotine Substance Abuse History: - Smoking Cessation. Smoking history: Current every day smoker. Have you smoked in the past 12 months: Yes. Aproximately how many cigarettes per day: 4. Cigars Per Day: 0. Hx Chewing Tobacco Use: No. Initiated information on smoking cessation: Yes. 'Breaking Loose' booklet given : 03/11/17. - Substance & Tx. History. Hx Alcohol Use: No. Hx Substance Use: Yes (HEROIN). Substance Use Type: Heroin. Hx Substance Use Treatment: Yes. - Substances Abused. Heroin. Route: Inhalation. Frequency: Daily. Amount used: 2-3 bags. Age of first use: 13. Date of Last Use: 03/10/17 Medical History: History of URI, HepC+ Psychiatric History: Patient rteprots minimizing psychiatric history, as per sarbjit there is a history of Schizophrenia with most recenr psychiatric hospitalization in more then 10 years ago,. Patient reports taking medicatyions prior to admission: Zyprexa 10mg po qhs. Ambien 10mg po qhs Physical/Sexual Abuse/Trauma History: Denies Additional Comment: Zyprexa 10mg po qhs. Ambien 10mg po qhs Mental Status Exam - Mental Status Exam Alert and Oriented to: Person Cognitive Function: Fair Patient Appearance: Unkempt Mood: Sad, Irritable Patient Behavior: Cooperative Speech Pattern: Appropriate Voice Loudness: Normal Thought Process: Goal Oriented Thought Disorder: Being Controlled Hallucinations: Denies Suicidal Ideation: Denies Homicidal Ideation: Denies Insight/Judgement: Fair Sleep: Difficulty falling asleep Appetite: Fair Muscle strength/Tone: Normal Gait/Station: Normal Additional Comments: Zyprexa 10mg po qhs. Ambien 10mg po qhs Psychiatric Findings - Problem List ([place] 1, 2,3) (1) Nicotine dependence Current Visit: Yes Status: Acute Qualifiers: Nicotine product type: cigarettes Substance use status: in withdrawal Qualified Code(s): F17.213 - Nicotine dependence, cigarettes, with withdrawal (2) Opioid dependence with withdrawal Current Visit: Yes Status: Acute (3) Schizophrenia, paranoid type Current Visit: No Status: Chronic (4) Drug-induced mood disorder Current Visit: Yes Status: Acute - Initial Treatment Plan Initial Treatment Plan: Zyprexa 10mg po qhs. Ambien 10mg po qhs
[2017-03-12 12:16] LABS: PLATELET COUNT 193 K/MM3 (134-434)
[2017-03-12] MEDS: THIAMINE HCL 100 MG TABLET (FP) PO SCH (22:15)
[2017-03-12] MEDS: OLANZapine 10 MG TABLET PO SCH (22:15)
[2017-03-12] MEDS: ZOLPIDEM TARTRATE 10 MG TABLET (PARK CARE ONLY) PO PRN (22:15)
[2017-03-13] MEDS ORDERED: METHADONE HCL 5 MG TABLET (FOR DETOX USE ONLY) PO ONE (10:00)
[2017-03-13] MEDS: PRENATAL VITAMINS W/ FOLIC ACID TABLET (FP) PO SCH (10:29)
[2017-03-13] MEDS: diazePAM 5 MG TABLET PO PRN (10:30)
[2017-03-13] MEDS: NICOTINE 14 MG/24 HOURS TOPICAL PATCH TD SCH (10:30)
[2017-03-13] MEDS ORDERED: AZITHROMYCIN 250 MG TABLET (FP) PO ONE (11:29)
--- NOTE | 2017-03-13 11:33 | PN ---
BHS COWS - Scale Resting Pulse: 0= [place] 80 or Below Sweatin=Flushed/Facial Moisture Restless Observation: 1= Difficult to Sit Still Pupil Size: 0= Normal to Room Light Bone or Joint Aches: 2= Severe Diffuse Aches Runny Nose/ Eye Tearin= Runny Nose/Eyes GI Upset > 30mins: 0= None Tremor Observation of Outstretched Hands: 2= Slight Tremor Visible Yawning Observation: 2= >3x During Session Anxiety or Irritability: 1=Feels Anxious/Irritable Goose Flesh Skin: 0=Smooth Skin COWS Score: 12 S Progress Note (SOAP) Subjective: sweats shakes runny nose I have a cold cough Objective: 03/13/17 11:37 Vital Signs Temperature 98.4 F 03/13/17 09:45 Pulse Rate 73 03/13/17 09:45 Respiratory Rate 18 03/13/17 09:45 Blood Pressure 104/68 03/13/17 09:45 O2 Sat by Pulse Oximetry (%) Laboratory Tests 03/11/17 03/11/17 03/12/17 12:10 17:00 06:00 WBC 10.4 H D RBC 4.39 Hgb 13.0 Hct 38.9 MCV 88.6 MCHC 33.3 RDW 12.7 Plt Count 193 D MPV 9.4 Platelet Comment No clumping noted Sodium Potassium Chloride Carbon Dioxide Anion Gap BUN Creatinine Creat Clearance w eGFR Random Glucose Calcium Total Bilirubin AST ALT Alkaline Phosphatase Total Protein Albumin Urine Color Yellow Urine Appearance Clear Urine pH 5.0 Ur Specific [place] 1.010 Urine Protein Negative Urine Glucose (UA) Negative Urine Ketones Negative Urine Blood 1+ H Urine Nitrite Negative Urine Bilirubin Negative Urine Urobilinogen Negative Ur Leukocyte Esterase Negative Urine RBC 2 Urine WBC <1 Urine Mucus Rare RPR Titer HIV 1&2 Antibody Screen Negative HIV P24 Antigen Negative 03/12/17 03/12/17 06:00 06:00 WBC RBC Hgb Hct MCV MCHC RDW Plt Count MPV Platelet Comment Sodium 136 Potassium 4.1 D Chloride 101 Carbon Dioxide 28 D Anion Gap 7 L BUN 15 Creatinine 1.1 Creat Clearance w eGFR > 60 Random Glucose 113 H D Calcium 9.1 Total Bilirubin 0.5 D AST 59 H D ALT 76 D Alkaline Phosphatase 102 Total Protein 7.9 Albumin 3.3 L Urine Color Urine Appearance Urine pH Ur Specific [place] Urine Protein Urine Glucose (UA) Urine Ketones Urine Blood Urine Nitrite Urine Bilirubin Urine Urobilinogen Ur Leukocyte Esterase Urine RBC Urine WBC Urine Mucus RPR Titer Nonreactive HIV 1&2 Antibody Screen HIV P24 Antigen awake/alert ambulating no acute distress Assessment: 03/13/17 11:37 withdrawal sx Plan: continue detox increase fluids z-pack robitussin prn
[2017-03-13] MEDS: ACETAMINOPHEN 325 MG TABLET (FP) PO PRN (17:48)
[2017-03-13] MEDS: THIAMINE HCL 100 MG TABLET (FP) PO SCH (22:35)
[2017-03-13] MEDS: ZOLPIDEM TARTRATE 10 MG TABLET (PARK CARE ONLY) PO PRN (22:35)
[2017-03-13] MEDS: OLANZapine 10 MG TABLET PO SCH (22:35)
[2017-03-14] MEDS: ACETAMINOPHEN 325 MG TABLET (FP) PO PRN (06:09)
[2017-03-14] MEDS ORDERED: METHADONE HCL 5 MG TABLET (FOR DETOX USE ONLY) PO ONE (10:00)
[2017-03-14] MEDS: AZITHROMYCIN 250 MG TABLET (FP) PO SCH (10:38)
[2017-03-14] MEDS: PRENATAL VITAMINS W/ FOLIC ACID TABLET (FP) PO SCH (10:38)
[2017-03-14] MEDS: NICOTINE 14 MG/24 HOURS TOPICAL PATCH TD SCH (10:39)
--- NOTE | 2017-03-14 12:13 | PN ---
BHS Progress Note (SOAP) Subjective: Tremors, Interrupted Sleep, H/A, Sweating. Objective: PT. A & O X 2 (DISORIENTED ABOUT DAY / DATE). PT. OBSERVED AMBULATING ON UNIT. 03/14/17 12:11 Vital Signs Temperature 98.1 F 03/14/17 10:00 Pulse Rate 75 03/14/17 10:00 Respiratory Rate 18 03/14/17 10:00 Blood Pressure 96/66 03/14/17 10:00 O2 Sat by Pulse Oximetry (%) Laboratory Tests 03/11/17 03/11/17 03/12/17 12:10 17:00 06:00 WBC 10.4 H D RBC 4.39 Hgb 13.0 Hct 38.9 MCV 88.6 MCHC 33.3 RDW 12.7 Plt Count 193 D MPV 9.4 Platelet Comment No clumping noted Sodium Potassium Chloride Carbon Dioxide Anion Gap BUN Creatinine Creat Clearance w eGFR Random Glucose Calcium Total Bilirubin AST ALT Alkaline Phosphatase Total Protein Albumin Urine Color Yellow Urine Appearance Clear Urine pH 5.0 Ur Specific [place] 1.010 Urine Protein Negative Urine Glucose (UA) Negative Urine Ketones Negative Urine Blood 1+ H Urine Nitrite Negative Urine Bilirubin Negative Urine Urobilinogen Negative Ur Leukocyte Esterase Negative Urine RBC 2 Urine WBC <1 Urine Mucus Rare RPR Titer HIV 1&2 Antibody Screen Negative HIV P24 Antigen Negative 03/12/17 03/12/17 06:00 06:00 WBC RBC Hgb Hct MCV MCHC RDW Plt Count MPV Platelet Comment Sodium 136 Potassium 4.1 D Chloride 101 Carbon Dioxide 28 D Anion Gap 7 L BUN 15 Creatinine 1.1 Creat Clearance w eGFR > 60 Random Glucose 113 H D Calcium 9.1 Total Bilirubin 0.5 D AST 59 H D ALT 76 D Alkaline Phosphatase 102 Total Protein 7.9 Albumin 3.3 L Urine Color Urine Appearance Urine pH Ur Specific [place] Urine Protein Urine Glucose (UA) Urine Ketones Urine Blood Urine Nitrite Urine Bilirubin Urine Urobilinogen Ur Leukocyte Esterase Urine RBC Urine WBC Urine Mucus RPR Titer Nonreactive HIV 1&2 Antibody Screen HIV P24 Antigen LABS NOTED. Assessment: 03/14/17 12:13 WITHDRAWAL SYMPTOMS. Plan: CONTINUE DETOX. INCREASE PO FLUIDS.
[2017-03-14] MEDS: THIAMINE HCL 100 MG TABLET (FP) PO SCH (22:42)
[2017-03-14] MEDS: OLANZapine 10 MG TABLET PO SCH (22:42)
[2017-03-14] MEDS: ZOLPIDEM TARTRATE 10 MG TABLET (PARK CARE ONLY) PO PRN (22:43)
[2017-03-15] MEDS ORDERED: METHADONE HCL 10 MG TABLET (FOR DETOX USE ONLY) PO ONE (10:00)
[2017-03-15] MEDS: PRENATAL VITAMINS W/ FOLIC ACID TABLET (FP) PO SCH (10:49)
[2017-03-15] MEDS: NICOTINE 14 MG/24 HOURS TOPICAL PATCH TD SCH (10:49)
[2017-03-15] MEDS: AZITHROMYCIN 250 MG TABLET (FP) PO SCH (10:49)
--- NOTE | 2017-03-15 18:38 | PN ---
BHS Progress Note (SOAP) Subjective: Interrupted Sleep, Sweating, H/A. Objective: PT. A & O X 1 (DISORIENTED ABOUT DAY/DATE ADN ABOUT CURRENT LOCATION). PT. OBSERVED AMBULATING ON UNIT. PT. DENIES CHEST PAIN. 03/15/17 18:33 Vital Signs Temperature 97.5 F L 03/15/17 18:28 Pulse Rate 66 03/15/17 18:28 Respiratory Rate 16 03/15/17 18:28 Blood Pressure 96/68 03/15/17 18:28 O2 Sat by Pulse Oximetry (%) Laboratory Tests 03/11/17 03/11/17 03/12/17 12:10 17:00 06:00 WBC 10.4 H D RBC 4.39 Hgb 13.0 Hct 38.9 MCV 88.6 MCHC 33.3 RDW 12.7 Plt Count 193 D MPV 9.4 Platelet Comment No clumping noted Sodium Potassium Chloride Carbon Dioxide Anion Gap BUN Creatinine Creat Clearance w eGFR Random Glucose Calcium Total Bilirubin AST ALT Alkaline Phosphatase Total Protein Albumin Urine Color Yellow Urine Appearance Clear Urine pH 5.0 Ur Specific [place] 1.010 Urine Protein Negative Urine Glucose (UA) Negative Urine Ketones Negative Urine Blood 1+ H Urine Nitrite Negative Urine Bilirubin Negative Urine Urobilinogen Negative Ur Leukocyte Esterase Negative Urine RBC 2 Urine WBC <1 Urine Mucus Rare RPR Titer HIV 1&2 Antibody Screen Negative HIV P24 Antigen Negative 03/12/17 03/12/17 06:00 06:00 WBC RBC Hgb Hct MCV MCHC RDW Plt Count MPV Platelet Comment Sodium 136 Potassium 4.1 D Chloride 101 Carbon Dioxide 28 D Anion Gap 7 L BUN 15 Creatinine 1.1 Creat Clearance w eGFR > 60 Random Glucose 113 H D Calcium 9.1 Total Bilirubin 0.5 D AST 59 H D ALT 76 D Alkaline Phosphatase 102 Total Protein 7.9 Albumin 3.3 L Urine Color Urine Appearance Urine pH Ur Specific [place] Urine Protein Urine Glucose (UA) Urine Ketones Urine Blood Urine Nitrite Urine Bilirubin Urine Urobilinogen Ur Leukocyte Esterase Urine RBC Urine WBC Urine Mucus RPR Titer Nonreactive HIV 1&2 Antibody Screen HIV P24 Antigen LABS NOTED. 03/15/17 18:38 03/15/17 18:39 Assessment: 03/15/17 18:34 WITHDRAWAL SYMPTOMS. 03/15/17 18:37 Plan: CONTINUE DETOX.
[2017-03-15] MEDS: ZOLPIDEM TARTRATE 10 MG TABLET (PARK CARE ONLY) PO PRN (22:52)
[2017-03-15] MEDS: OLANZapine 10 MG TABLET PO SCH (22:53)
[2017-03-15] MEDS: THIAMINE HCL 100 MG TABLET (FP) PO SCH (22:53)
[2017-03-16] MEDS ORDERED: METHADONE HCL 5 MG TABLET (FOR DETOX USE ONLY) PO ONE (06:00)
[2017-03-16] MEDS: AZITHROMYCIN 250 MG TABLET (FP) PO SCH (10:46)
[2017-03-16] MEDS: NICOTINE 14 MG/24 HOURS TOPICAL PATCH TD SCH (10:46)
[2017-03-16] MEDS: PRENATAL VITAMINS W/ FOLIC ACID TABLET (FP) PO SCH (10:46)
--- NOTE | 2017-03-16 10:54 | DS ---
[facility] Detox Discharge Summary Admission Date: 03/11/17 Discharge Date: 03/16/17 - History Present History: Opioid Dependence Pertinent Past History: Hep C Schizophrenia - Physical Exam Results Vital Signs: Vital Signs Temperature 97.5 F L 03/16/17 06:44 Pulse Rate 69 03/16/17 06:44 Respiratory Rate 18 03/16/17 06:44 Blood Pressure 109/75 03/16/17 06:44 O2 Sat by Pulse Oximetry (%) Pertinent Admission Physical Exam Findings: Withdrawal sx. Laboratory Last Values WBC 10.4 K/mm3 (4.0-10.0) H D 03/12/17 06:00 RBC 4.39 M/mm3 (4.00-5.60) 03/12/17 06:00 Hgb 13.0 GM/dL (11.7-16.9) 03/12/17 06:00 Hct 38.9 % (35.4-49) 03/12/17 06:00 MCV 88.6 fl (80-96) 03/12/17 06:00 MCHC 33.3 g/dl (32.0-35.9) 03/12/17 06:00 RDW 12.7 % (11.9-15.9) 03/12/17 06:00 Plt Count 193 K/MM3 (134-434) D 03/12/17 06:00 MPV 9.4 fl (7.5-11.1) 03/12/17 06:00 Platelet Comment No clumping noted 03/12/17 06:00 Sodium 136 mmol/L (136-145) 03/12/17 06:00 Potassium 4.1 mmol/L (3.5-5.1) D 03/12/17 06:00 Chloride 101 mmol/L (98-107) 03/12/17 06:00 Carbon Dioxide 28 mmol/L (21-32) D 03/12/17 06:00 Anion Gap 7 (8-16) L 03/12/17 06:00 BUN 15 mg/dL (7-18) 03/12/17 06:00 Creatinine 1.1 mg/dL (0.7-1.3) 03/12/17 06:00 Creat Clearance w eGFR > 60 (>60) 03/12/17 06:00 Random Glucose 113 mg/dL (74-106) H D 03/12/17 06:00 Calcium 9.1 mg/dL (8.5-10.1) 03/12/17 06:00 Total Bilirubin 0.5 mg/dL (0.2-1.0) D 03/12/17 06:00 AST 59 U/L (15-37) H D 03/12/17 06:00 ALT 76 U/L (12-78) D 03/12/17 06:00 Alkaline Phosphatase 102 U/L (45-117) 03/12/17 06:00 Total Protein 7.9 g/dl (6.4-8.2) 03/12/17 06:00 Albumin 3.3 g/dl (3.4-5.0) L 03/12/17 06:00 Urine Color Yellow 03/11/17 17:00 Urine Appearance Clear 03/11/17 17:00 Urine pH 5.0 (5.0-8.0) 03/11/17 17:00 Ur Specific [place] 1.010 (1.005-1.025) 03/11/17 17:00 Urine Protein Negative (NEGATIVE) 03/11/17 17:00 Urine Glucose (UA) Negative (NEGATIVE) 03/11/17 17:00 Urine Ketones Negative (NEGATIVE) 03/11/17 17:00 Urine Blood 1+ (NEGATIVE) H 03/11/17 17:00 Urine Nitrite Negative (NEGATIVE) 03/11/17 17:00 Urine Bilirubin Negative (NEGATIVE) 03/11/17 17:00 Urine Urobilinogen Negative E.U./dl (0.2-1.0) 03/11/17 17:00 Ur Leukocyte Esterase Negative (NEGATIVE) 03/11/17 17:00 Urine RBC 2 /hpf (0-3) 03/11/17 17:00 Urine WBC <1 /hpf (3-5) 03/11/17 17:00 Urine Mucus Rare 03/11/17 17:00 RPR Titer Nonreactive (NONREACTIVE) 03/12/17 06:00 HIV 1&2 Antibody Screen Negative 03/11/17 12:10 HIV P24 Antigen Negative 03/11/17 12:10 labs noted - Treatment Hospital Course: Detox Protocol Followed, Detoxed Safely, Responded well, Discharged Condition Good, Rehab Referral Accepted Patient has Accepted a Rehab Referral to: [facility] or [facility] - Medication Discharge Medications: Ambulatory Orders Olanzapine [ZyPREXA -] 10 mg PO HS #30 tablet 03/12/17 Zolpidem Tartrate [Ambien] 10 mg PO HS PRN #14 tablet MDD 10 03/12/17 Azithromycin [Zithromax 250mg Tablets -] 250 mg PO DAILY #5 tablet 03/16/17 - Diagnosis (1) Drug-induced mood disorder Current Visit: Yes Status: Acute (2) Nicotine dependence Current Visit: Yes Status: Acute Qualifiers: Nicotine product type: cigarettes Substance use status: in withdrawal Qualified Code(s): F17.213 - Nicotine dependence, cigarettes, with withdrawal (3) Opioid dependence with withdrawal Current Visit: Yes Status: Acute (4) URI (upper respiratory infection) Current Visit: Yes Status: Acute Qualifiers: URI type: acute nasopharyngitis (common cold) Qualified Code(s): J00 - Acute nasopharyngitis [common cold] (5) Insomnia Current Visit: No Status: Chronic Qualifiers: Insomnia type: unspecified Qualified Code(s): G47.00 - Insomnia, unspecified (6) Schizophrenia, paranoid type Current Visit: Yes Status: Chronic - AMA Did Patient Leave Against Medical Advice: No
[2017-03-16 11:10] VITALS: BP 112/82; PULSE 96; TEMP 99.3
== END 2017-03-16 10:53 | disposition home or self-care (01) | DRG 773 ==
LOC: YASAS 09:47 → Y6N 13:27
PROVIDERS: ADMIT Internal Medicine Addiction Medicine; ATTEND Internal Medicine Addiction Medicine
PROC: HZ2ZZZZ Detoxification Services for Substance Abuse Treatment (ICD-10-PCS; principal; 2017-03-11)
DX: F11.23 Opioid dependence with withdrawal (principal); F17.213 Nicotine dependence, cigarettes, with withdrawal; F19.24 Other psychoactive substance dependence with psychoactive substance-induced mood disorder; F25.9 Schizoaffective disorder, unspecified; J00 Acute nasopharyngitis [common cold]; G47.00 Insomnia, unspecified; B18.2 Chronic viral hepatitis C; Z87.438 Personal history of other diseases of male genital organs
CPT/HCPCS: 36415; 71020-TC; 80053; 81003; 81015; 85027; 86593; 87389; 93005; 93010

== ENCOUNTER 2017-11-12 12:11 | Inpatient (IN) | payer OTHER ==
[2017-11-12 15:10] VITALS: BMI 21.6
[2017-11-12] MEDS ORDERED: FLU VACCINE QUAD 60 MCG/0.5 ML (MDV 17-18) IM ONE (16:52)
--- NOTE | 2017-11-12 17:08 | HP ---
COWS - Scale Resting Pulse: 0= [place] 80 or Below Sweatin= Chills/Flushing Restless Observation: 5= Unable to Sit Still Pupil Size: 1= Pupils >than Normal Bone or Joint Aches: 1= Mild Discomfort Runny Nose/ Eye Tearin= Nasal Congestion GI Upset > 30mins: 0= None Tremor Observation: 2= Slight Tremor Visible Yawning Observation: 4= Several Times/Minute Anxiety or Irritability: 2=Irritable/Anxious Goose Flesh Skin: 0=Smooth Skin COWS Score: 17 Admission ROS S - HPI Chief Complaint: withdrawal symptoms Allergies/Adverse Reactions: Allergies Allergy/AdvReac Type Severity Reaction Status Date / Time No Known Allergies Allergy Verified 11/12/17 16:44 History of Present Illness: 51 yo male with history of heroin dependence since 13 years old. Reports hx of paranoid schizophrenia with auditory hallucinations and depression. Last Detox [facility] September 2017. Longest period of sobriety 1 year. Exam Limitations: No Limitations - Ebola screening Have you traveled outside of the country in the last 21 days: No Have you had contact with anyone from an Ebola affected area: No Have you been sick,other than usual withdrawal symptoms: No Do you have a fever: No - Review of Systems Constitutional: Chills, Changes in sleep, Unintentional Wgt. Loss EENT: reports: Blurred Vision (reports uses glasses which are non-prescribe) Respiratory: reports: No Symptoms reported Cardiac: reports: No Symptoms Reported GI: reports: No Symptoms Reported : reports: Other (nocturia) Musculoskeletal: reports: Joint Pain Integumentary: reports: Dryness Neuro: reports: No Symptoms reported Endocrine: reports: Increased Thirst, Change in Weight Hematology: reports: No Symptoms Reported Psychiatric: reports: Orientated x3, Anxious, Depressed Other Systems: Reviewed and Negative Patient History - Patient Medical History Hx Anemia: No Hx Asthma: No Hx Chronic Obstructive Pulmonary Disease (COPD): No Hx Cancer: No Hx Cardiac Disorders: No Hx Congestive Heart Failure: No Hx Hypertension: No Hx Hypercholesterolemia: No Hx Pacemaker: No HX Cerebrovascular Accident: No Hx Seizures: No Hx Dementia: No Hx Diabetes: No Hx Gastrointestinal Disorders: No Hx Liver Disease: Yes (Hep C) Hx Genitourinary Disorders: No Hx Sexually Transmitted Disorders: No Hx Renal Disease (ESRD): No Hx Thyroid Disease: No Hx Human Immunodeficiency Virus (HIV): No Hx Hepatitis C: Yes (COMPLETED [place] ) Hx Depression: Yes Hx Suicide Attempt: Yes (5 years ago, but cutting neck ) Hx Bipolar Disorder: Yes (NOT ON MEDS ) Hx Schizophrenia: Yes - Patient Surgical History Past Surgical History: Yes Hx Neurologic Surgery: No Hx Cataract Extraction: No Hx Cardiac Surgery: No Hx Lung Surgery: No Hx Breast Surgery: No Hx Breast Biopsy: No Hx Abdominal Surgery: No Hx Appendectomy: No Hx Cholecystectomy: No Hx Genitourinary Surgery: No Hx Section: No Hx Orthopedic Surgery: No Other Surgical History: laceration, left side of neck Anesthesia Reaction: No - PPD History Previous Implant?: Yes Documented Results: Negative w/proof Date: 01/15/17 Results: 0.0 PPD to be Administered?: No - Reproductive History Patient is a Female of Child Bearing Age (11 -55 yrs old): No - Smoking Cessation Smoking history: Current every day smoker Have you smoked in the past 12 months: Yes Aproximately how many cigarettes per day: 20 Cigars Per Day: 0 Hx Chewing Tobacco Use: No Initiated information on smoking cessation: Yes 'Breaking Loose' booklet given: 11/12/17 - Substance & Tx. History Hx Alcohol Use: No Hx Substance Use: Yes Substance Use Type: Heroin Hx Substance Use Treatment: Yes (Heroin last Detox Sep 2017) - Substances Abused Heroin Route: Inhalation Frequency: Daily Amount used: 10 bags Age of first use: 13 Date of Last Use: 11/12/17 Family Disease History - Family Disease History Family Disease History: Diabetes: Sister, Heart Disease: Sister, Respiratory: Mother ( Asthma ), Other: Father (Alcoholism and kidney failure ) Admission Physical Exam S - Vital Signs Vital Signs: Vital Signs - 24 hr 11/12/17 15:04 Temperature 96.4 F L Pulse Rate 56 L Respiratory 20 Rate Blood Pressure 95/67 - Physical General Appearance: Yes: No Apparent Distress, Appropriately Dressed, Thin, Anxious HEENTM: Yes: Hearing grossly Normal, Normal ENT Inspection, Normocephalic, Normal Voice, YANELI, Pharynx Normal Respiratory: Yes: Chest Non-Tender, Lungs Clear, Normal Breath Sounds, No Respiratory Distress, No Accessory Muscle Use Neck: Yes: No masses,lesions,Nodules, Other (healed scar accross the neck) Breast: Yes: Breast Exam Deferred Cardiology: Yes: Regular Rhythm, Regular Rate, S1, S2 Abdominal: Yes: Within Normal Limits, Normal Bowel Sounds, Non Tender, Flat, Soft Genitourinary: Yes: Within Normal Limits (no urinary symptoms reported) Back: Yes: Within Normal Limits, Normal Inspection Musculoskeletal: Yes: Within Normal Limits, full range of Motion, Gait Steady, Pelvis Stable Extremities: Yes: Within Normal Limits, Normal Capillary Refill, Normal Inspection, Normal Range of Motion, Non-Tender Neurological: Yes: senior materials scientist II-XII NML intact, Fully Oriented, Alert, Motor Strength 5/5, Normal Response, Depressed Affect Integumentary: Yes: Within Normal Limits, Normal Color, Dry, Warm, Other (poor skin turgor) Lymphatic: Yes: Within Normal Limits - Diagnostic (1) Dehydration Current Visit: Yes Status: Acute (2) Tinea pedis Current Visit: Yes Status: Acute (3) Opioid dependence with withdrawal Current Visit: No Status: Acute (4) Hepatitis C Current Visit: No Status: Chronic (5) Nicotine dependence Current Visit: No Status: Chronic Qualifiers: Nicotine product type: cigarettes Substance use status: uncomplicated Qualified Code(s): F17.210 - Nicotine dependence, cigarettes, uncomplicated Cleared for Admission [facility] - Detox or Rehab [facility] Level of Care: Medically Managed Detox Regimen/Protocol: Methadone [facility] Breath Alcohol Content Breath Alcohol Content: 0 Urine Drug Screen - Results Drug Screen Negative: No Urine Drug Screen Results: OPI-Opiates, MTD-Methadone
[2017-11-12] MEDS ORDERED: MAGNESIUM HYDROX 2400MG/30ML ORAL SUSPENSION 30 ML CUP PO PRN (17:22)
[2017-11-12] MEDS ORDERED: MENTHOL/PHENOL 1 EACH UD MM PRN (17:22)
[2017-11-12] MEDS ORDERED: METHADONE HCL 10 MG TABLET (FOR DETOX USE ONLY) PO ONE ×2 (17:22→23:00)
[2017-11-12] MEDS ORDERED: IBUPROFEN 400 MG TABLET (FP) PO PRN (17:22)
[2017-11-12] MEDS ORDERED: P-EPHED 60MG/TRIPROLIDI 2.5MG TABLET PO PRN (17:22)
[2017-11-12] MEDS ORDERED: guaiFENesin/D-METHORPHAN HB 10 ML UNIT-DOSE CUPS PO PRN (17:22)
[2017-11-12] MEDS ORDERED: ACETAMINOPHEN 325 MG TABLET (FP) PO PRN (17:22)
[2017-11-12] MEDS ORDERED: LOPERAMIDE HCL 2 MG CAPSULE PO PRN (17:22)
[2017-11-12] MEDS ORDERED: diazePAM 5 MG TABLET PO PRN (17:22)
[2017-11-12] MEDS ORDERED: NICOTINE POLACRILEX 2 MG GUM BUC PRN (17:22)
[2017-11-12] MEDS ORDERED: MAGNESIUM CITRATE 300 ML BOTTLE PO PRN (17:22)
[2017-11-12] MEDS ORDERED: MAG HYDROX/AL HYDROX/SIMETH 30 ML UNIT-DOSE CUP PO PRN (17:22)
[2017-11-12] MEDS ORDERED: METHADONE HCL 10 MG TABLET (FOR DETOX USE ONLY) ONE (19:36)
[2017-11-12] MEDS: NICOTINE 21 MG/24 HOURS TOPICAL PATCH TD SCH (19:41)
[2017-11-12 21:34] LABS: URINE APPEARANCE CLEAR; URINE BILIRUBIN NEGATIVE (NEGATIVE); URINE BLOOD NEGATIVE (NEGATIVE); URINE COLOR YELLOW; URINE GLUCOSE (UA) NEGATIVE (NEGATIVE); URINE KETONE NEGATIVE (NEGATIVE); URINE LEUK ESTERASE NEGATIVE (NEGATIVE); URINE NITRITE NEGATIVE (NEGATIVE); URINE PROTEIN NEGATIVE (NEGATIVE); URINE UROBILINOGEN NEGATIVE mg/dL (0.2-1.0)
[2017-11-12] MEDS: CLOTRIMAZOLE 1% CREAM 15 GM TUBE TP SCH (22:47)
[2017-11-12] MEDS: THIAMINE HCL 100 MG TABLET (FP) PO SCH (23:27)
--- NOTE | 2017-11-13 08:31 | CONSULT ---
[facility] Psychiatric Consult - Data Date of interview: 11/13/17 Admission source: [facility]
--- NOTE | 2017-11-13 08:33 | CONSULT ---
[facility] Psychiatric Consult - Data Date of interview: 11/13/17 Admission source: [facility] Identifying data: This is 51 years old male with Schophreni, with no psychiatric hospitalization history intoxicated with: Opioids, MNethadone and Nicotine Substance Abuse History: - Smoking Cessation. Smoking history: Current every day smoker. Have you smoked in the past 12 months: Yes. Aproximately how many cigarettes per day: 20. Cigars Per Day: 0. Hx Chewing Tobacco Use: No. Initiated information on smoking cessation: Yes. 'Breaking Loose' booklet given : 11/12/17. - Substance & Tx. History. Hx Alcohol Use: No. Hx Substance Use: Yes. Substance Use Type: Heroin. Hx Substance Use Treatment: Yes (Heroin last Detox Sep 2017). - Substances Abused. Heroin. Route: Inhalation. Frequency: Daily. Amount used: 10 bags. Age of first use: 13. Date of Last Use: Medical History: HepC+ Psychiatric History: Patient reports anxieoty and depression, as per computer history of Schizophrenia and Bipolr disorder, history of suicidal attempt on about 5 years ago, no suicidal history since then, reports taking prior to admission: Zyprexa 10mg po qhs Physical/Sexual Abuse/Trauma History: Denies Additional Comment: Zyprexa 10mg po qhs Mental Status Exam - Mental Status Exam Alert and Oriented to: Person Cognitive Function: Fair Patient Appearance: Unkempt Mood: Sad Affect: Flat Patient Behavior: Guarded Speech Pattern: Delayed Voice Loudness: Mildly Soft/Quiet Thought Process: Goal Oriented Thought Disorder: Being Controlled Hallucinations: Denies Suicidal Ideation: Denies Homicidal Ideation: Denies Insight/Judgement: Fair Sleep: Difficulty falling asleep Appetite: Weight loss Muscle strength/Tone: Normal Gait/Station: Shuffling Additional Comments: Zyprexa 10mg po qhs Psychiatric Findings - Problem List ([place] 1, 2,3) (1) Drug-induced mood disorder Current Visit: No Status: Acute (2) Opioid dependence with withdrawal Current Visit: No Status: Acute (3) Bipolar disorder Current Visit: No Status: Chronic (4) Depression Current Visit: No Status: Chronic (5) Nicotine dependence Current Visit: No Status: Chronic Qualifiers: Nicotine product type: cigarettes Substance use status: uncomplicated Qualified Code(s): F17.210 - Nicotine dependence, cigarettes, uncomplicated (6) Schizophrenia, paranoid type Current Visit: No Status: Chronic - Initial Treatment Plan Initial Treatment Plan: Zyprexa 10mg po qhs
[2017-11-13] MEDS ORDERED: FLU VACCINE QUAD 60 MCG/0.5 ML (MDV 17-18) IM ONE (10:00)
[2017-11-13] MEDS ORDERED: METHADONE HCL 10 MG TABLET (FOR DETOX USE ONLY) PO ONE (10:00)
[2017-11-13 10:04] LABS: HEMATOCRIT 43.8 % (35.4-49); HEMOGLOBIN 14.2 GM/dL (11.7-16.9); MCH 29.1 pg (25.7-33.7); MCHC 32.4 g/dl (32.0-35.9); MEAN CELL VOLUME 89.8 fl (80-96); MEAN PLT VOLUME 10.9 fl (7.5-11.1); RBC 4.88 M/mm3 (4.00-5.60); RDW 13.5 % (11.9-15.9); WHITE BLOOD COUNT 4.5 K/mm3 (4.0-10.0)
[2017-11-13 10:13] LABS: CHLORIDE 103 mmol/L (98-107); POTASSIUM 4.6 mmol/L (3.5-5.1); SODIUM 139 mmol/L (136-145)
[2017-11-13 10:20] LABS: ALBUMIN 3.9 g/dl (3.4-5.0); ALK PHOS 94 U/L (45-117); ANION GAP 7 (8-16); BILIRUBIN,TOTAL 0.7 mg/dL (0.2-1.0); BLOOD UREA NITROGEN 13 mg/dL (7-18); CO2 29 mmol/L (21-32); GLUCOSE,RANDOM 96 mg/dL (74-106); SGOT/AST 161 U/L (15-37); SGPT/ALT 234 U/L (12-78); TOT PROT 8.5 g/dl (6.4-8.2)
--- NOTE | 2017-11-13 10:33 | EKG ---
Test Reason : Blood Pressure : / mmHG Vent. Rate : 055 BPM Atrial Rate : 055 BPM P-R Int : 232 ms QRS Dur : 080 ms QT Int : 430 ms P-R-T Axes : 074 065 043 degrees QTc Int : 411 ms SINUS BRADYCARDIA WITH SINUS ARRHYTHMIA WITH 1ST DEGREE A-V BLOCK OTHERWISE NORMAL ECG WHEN COMPARED WITH ECG OF 23-SEP-2017 18:31, NO SIGNIFICANT CHANGE WAS FOUND Confirmed by CARLOS EDUARDO HERRERA, JESSICA ([id number]) on 11/13/2017 10:33:30 AM Referred By: Confirmed By:JESSICA THIBODEAUX MD
[2017-11-13] MEDS: PRENATAL VITAMINS W/ FOLIC ACID TABLET (FP) PO SCH (10:56)
[2017-11-13] MEDS: NICOTINE 21 MG/24 HOURS TOPICAL PATCH TD SCH (10:56)
[2017-11-13] MEDS: CLOTRIMAZOLE 1% CREAM 15 GM TUBE TP SCH ×2 (10:56→22:18)
--- NOTE | 2017-11-13 12:19 | PN ---
S COWS - Scale Resting Pulse: 0= [place] 80 or Below Sweatin= Chills/Flushing Restless Observation: 1= Difficult to Sit Still Pupil Size: 1= Pupils >than Normal Bone or Joint Aches: 1= Mild Discomfort Runny Nose/ Eye Tearin= Nasal Congestion GI Upset > 30mins: 1= Stomach Cramp Tremor Observation of Outstretched Hands: 2= Slight Tremor Visible Yawning Observation: 2= >3x During Session Anxiety or Irritability: 2=Irritable/Anxious Goose Flesh Skin: 0=Smooth Skin COWS Score: 12 S Progress Note (SOAP) Subjective: joints ache restlessness agitation Objective: 11/13/17 12:18 Vital Signs Temperature 97.5 F L 11/13/17 09:39 Pulse Rate 56 L 11/13/17 09:39 Respiratory Rate 18 11/13/17 09:39 Blood Pressure 104/62 11/13/17 09:39 O2 Sat by Pulse Oximetry (%) Laboratory Last Values WBC 4.5 K/mm3 (4.0-10.0) D 11/13/17 05:45 RBC 4.88 M/mm3 (4.00-5.60) 11/13/17 05:45 Hgb 14.2 GM/dL (11.7-16.9) 11/13/17 05:45 Hct 43.8 % (35.4-49) 11/13/17 05:45 MCV 89.8 fl (80-96) 11/13/17 05:45 MCH 29.1 pg (25.7-33.7) 11/13/17 05:45 MCHC 32.4 g/dl (32.0-35.9) 11/13/17 05:45 RDW 13.5 % (11.9-15.9) 11/13/17 05:45 MPV 10.9 fl (7.5-11.1) 11/13/17 05:45 Sodium 139 mmol/L (136-145) 11/13/17 05:45 Potassium 4.6 mmol/L (3.5-5.1) 11/13/17 05:45 Chloride 103 mmol/L (98-107) 11/13/17 05:45 Carbon Dioxide 29 mmol/L (21-32) 11/13/17 05:45 Anion Gap 7 (8-16) L 11/13/17 05:45 BUN 13 mg/dL (7-18) D 11/13/17 05:45 Creatinine 1.0 mg/dL (0.7-1.3) 11/13/17 05:45 Creat Clearance w eGFR > 60 (>60) 11/13/17 05:45 Random Glucose 96 mg/dL (74-106) 11/13/17 05:45 Calcium 9.0 mg/dL (8.5-10.1) 11/13/17 05:45 Total Bilirubin 0.7 mg/dL (0.2-1.0) D 11/13/17 05:45 AST 161 U/L (15-37) H D 11/13/17 05:45 ALT 234 U/L (12-78) H D 11/13/17 05:45 Alkaline Phosphatase 94 U/L (45-117) 11/13/17 05:45 Total Protein 8.5 g/dl (6.4-8.2) H 11/13/17 05:45 Albumin 3.9 g/dl (3.4-5.0) 11/13/17 05:45 Urine Color Yellow 11/12/17 20:00 Urine Appearance Clear 11/12/17 20:00 Urine pH 5.0 (5.0-8.0) 11/12/17 20:00 Ur Specific [place] 1.024 (1.001-1.035) 11/12/17 20:00 Urine Protein Negative (NEGATIVE) 11/12/17 20:00 Urine Glucose (UA) Negative (NEGATIVE) 11/12/17 20:00 Urine Ketones Negative (NEGATIVE) 11/12/17 20:00 Urine Blood Negative (NEGATIVE) 11/12/17 20:00 Urine Nitrite Negative (NEGATIVE) 11/12/17 20:00 Urine Bilirubin Negative (NEGATIVE) 11/12/17 20:00 Urine Urobilinogen Negative mg/dL (0.2-1.0) 11/12/17 20:00 Ur Leukocyte Esterase Negative (NEGATIVE) 11/12/17 20:00 RPR Titer Nonreactive (NONREACTIVE) 11/13/17 05:45 lab noted Assessment: 11/13/17 12:18 withdrawal sx Plan: continue detox
[2017-11-13 14:06] LABS: PLATELET COUNT 152 K/MM3 (134-434)
[2017-11-13] MEDS: THIAMINE HCL 100 MG TABLET (FP) PO SCH (22:17)
[2017-11-13] MEDS: OLANZapine 10 MG TABLET PO SCH (22:17)
[2017-11-14] MEDS ORDERED: METHADONE HCL 5 MG TABLET (FOR DETOX USE ONLY) PO ONE (10:00)
--- NOTE | 2017-11-14 10:28 | PN ---
S COWS - Scale Resting Pulse: 0= [place] 80 or Below Sweatin= Chills/Flushing Restless Observation: 1= Difficult to Sit Still Pupil Size: 1= Pupils >than Normal Bone or Joint Aches: 1= Mild Discomfort Runny Nose/ Eye Tearin= Nasal Congestion GI Upset > 30mins: 2= Nausea/Diarrhea Tremor Observation of Outstretched Hands: 1= Tremor [place], Not Seen Yawning Observation: 1= 1-2x During Session Anxiety or Irritability: 2=Irritable/Anxious Goose Flesh Skin: 3=Piloerection COWS Score: 14 S Progress Note (SOAP) Subjective: nausea, sweats, interrupted sleeep, anxiety tremors Objective: 11/14/17 10:27 Vital Signs - 24 hr 11/13/17 11/13/17 11/13/17 13:38 17:53 22:00 Temperature 98.1 F 98.2 F 97.9 F Pulse Rate 56 L 60 60 Respiratory 18 18 20 Rate Blood Pressure 118/70 104/60 116/78 11/14/17 11/14/17 11/14/17 00:30 03:30 06:56 Temperature 97.7 F Pulse Rate 70 Respiratory 18 18 18 Rate Blood Pressure 125/64 11/14/17 09:29 Temperature 97.5 F L Pulse Rate 57 L Respiratory 16 Rate Blood Pressure 121/74 Laboratory Tests 11/12/17 11/13/17 11/13/17 20:00 05:45 05:45 WBC 4.5 D RBC 4.88 Hgb 14.2 Hct 43.8 MCV 89.8 MCH 29.1 MCHC 32.4 RDW 13.5 Plt Count 152 D MPV 10.9 Sodium 139 Potassium 4.6 Chloride 103 Carbon Dioxide 29 Anion Gap 7 L BUN 13 D Creatinine 1.0 Creat Clearance w eGFR > 60 Random Glucose 96 Calcium 9.0 Total Bilirubin 0.7 D AST 161 H D ALT 234 H D Alkaline Phosphatase 94 Total Protein 8.5 H Albumin 3.9 Urine Color Yellow Urine Appearance Clear Urine pH 5.0 Ur Specific [place] 1.024 Urine Protein Negative Urine Glucose (UA) Negative Urine Ketones Negative Urine Blood Negative Urine Nitrite Negative Urine Bilirubin Negative Urine Urobilinogen Negative Ur Leukocyte Esterase Negative RPR Titer 11/13/17 05:45 WBC RBC Hgb Hct MCV MCH MCHC RDW Plt Count MPV Sodium Potassium Chloride Carbon Dioxide Anion Gap BUN Creatinine Creat Clearance w eGFR Random Glucose Calcium Total Bilirubin AST ALT Alkaline Phosphatase Total Protein Albumin Urine Color Urine Appearance Urine pH Ur Specific [place] Urine Protein Urine Glucose (UA) Urine Ketones Urine Blood Urine Nitrite Urine Bilirubin Urine Urobilinogen Ur Leukocyte Esterase RPR Titer Nonreactive Assessment: 11/14/17 10:28 withdrawal sx - cotn detox, fluids, encourage ambualtion
[2017-11-14] MEDS: NICOTINE 21 MG/24 HOURS TOPICAL PATCH TD SCH (10:46)
[2017-11-14] MEDS: PRENATAL VITAMINS W/ FOLIC ACID TABLET (FP) PO SCH (10:46)
[2017-11-14] MEDS: CLOTRIMAZOLE 1% CREAM 15 GM TUBE TP SCH ×2 (10:47→22:13)
[2017-11-14] MEDS: OLANZapine 10 MG TABLET PO SCH (22:13)
[2017-11-14] MEDS: THIAMINE HCL 100 MG TABLET (FP) PO SCH (22:13)
[2017-11-15] MEDS ORDERED: METHADONE HCL 5 MG TABLET (FOR DETOX USE ONLY) PO ONE (10:00)
[2017-11-15] MEDS: CLOTRIMAZOLE 1% CREAM 15 GM TUBE TP SCH ×2 (10:45→22:20)
[2017-11-15] MEDS: NICOTINE 21 MG/24 HOURS TOPICAL PATCH TD SCH (10:46)
[2017-11-15] MEDS: PRENATAL VITAMINS W/ FOLIC ACID TABLET (FP) PO SCH (10:46)
--- NOTE | 2017-11-15 14:09 | PN ---
[facility] Progress Note (SOAP) Subjective: shakes sleep disturbance Objective: 11/15/17 14:08 Vital Signs Temperature 97.9 F 11/15/17 11:18 Pulse Rate 84 11/15/17 11:18 Respiratory Rate 20 11/15/17 11:18 Blood Pressure 129/70 11/15/17 11:18 O2 Sat by Pulse Oximetry (%) in no acute distress Assessment: 11/15/17 14:09 withdrawal symptoms Plan: continue detox
[2017-11-15] MEDS: OLANZapine 10 MG TABLET PO SCH (22:20)
[2017-11-15] MEDS: THIAMINE HCL 100 MG TABLET (FP) PO SCH (22:20)
[2017-11-15] MEDS: hydrOXYzine PAMOATE 50 MG CAPSULE (FP) PO PRN (22:20)
[2017-11-16] MEDS ORDERED: METHADONE HCL 10 MG TABLET (FOR DETOX USE ONLY) PO ONE (10:00)
[2017-11-16] MEDS: PRENATAL VITAMINS W/ FOLIC ACID TABLET (FP) PO SCH (10:57)
[2017-11-16] MEDS: NICOTINE 21 MG/24 HOURS TOPICAL PATCH TD SCH (10:57)
[2017-11-16] MEDS: CLOTRIMAZOLE 1% CREAM 15 GM TUBE TP SCH ×2 (10:58→22:39)
--- NOTE | 2017-11-16 12:04 | PN ---
[facility] Progress Note (SOAP) Subjective: joint aches anxiety restlessness Objective: 11/16/17 12:03 Vital Signs Temperature 98.1 F 11/16/17 10:00 Pulse Rate 75 11/16/17 10:00 Respiratory Rate 18 11/16/17 10:00 Blood Pressure 106/73 11/16/17 10:00 O2 Sat by Pulse Oximetry (%) Laboratory Last Values WBC 4.5 K/mm3 (4.0-10.0) D 11/13/17 05:45 RBC 4.88 M/mm3 (4.00-5.60) 11/13/17 05:45 Hgb 14.2 GM/dL (11.7-16.9) 11/13/17 05:45 Hct 43.8 % (35.4-49) 11/13/17 05:45 MCV 89.8 fl (80-96) 11/13/17 05:45 MCH 29.1 pg (25.7-33.7) 11/13/17 05:45 MCHC 32.4 g/dl (32.0-35.9) 11/13/17 05:45 RDW 13.5 % (11.9-15.9) 11/13/17 05:45 Plt Count 152 K/MM3 (134-434) D 11/13/17 05:45 MPV 10.9 fl (7.5-11.1) 11/13/17 05:45 Sodium 139 mmol/L (136-145) 11/13/17 05:45 Potassium 4.6 mmol/L (3.5-5.1) 11/13/17 05:45 Chloride 103 mmol/L (98-107) 11/13/17 05:45 Carbon Dioxide 29 mmol/L (21-32) 11/13/17 05:45 Anion Gap 7 (8-16) L 11/13/17 05:45 BUN 13 mg/dL (7-18) D 11/13/17 05:45 Creatinine 1.0 mg/dL (0.7-1.3) 11/13/17 05:45 Creat Clearance w eGFR > 60 (>60) 11/13/17 05:45 Random Glucose 96 mg/dL (74-106) 11/13/17 05:45 Calcium 9.0 mg/dL (8.5-10.1) 11/13/17 05:45 Total Bilirubin 0.7 mg/dL (0.2-1.0) D 11/13/17 05:45 AST 161 U/L (15-37) H D 11/13/17 05:45 ALT 234 U/L (12-78) H D 11/13/17 05:45 Alkaline Phosphatase 94 U/L (45-117) 11/13/17 05:45 Total Protein 8.5 g/dl (6.4-8.2) H 11/13/17 05:45 Albumin 3.9 g/dl (3.4-5.0) 11/13/17 05:45 Urine Color Yellow 11/12/17 20:00 Urine Appearance Clear 11/12/17 20:00 Urine pH 5.0 (5.0-8.0) 11/12/17 20:00 Ur Specific [place] 1.024 (1.001-1.035) 11/12/17 20:00 Urine Protein Negative (NEGATIVE) 11/12/17 20:00 Urine Glucose (UA) Negative (NEGATIVE) 11/12/17 20:00 Urine Ketones Negative (NEGATIVE) 11/12/17 20:00 Urine Blood Negative (NEGATIVE) 11/12/17 20:00 Urine Nitrite Negative (NEGATIVE) 11/12/17 20:00 Urine Bilirubin Negative (NEGATIVE) 11/12/17 20:00 Urine Urobilinogen Negative mg/dL (0.2-1.0) 11/12/17 20:00 Ur Leukocyte Esterase Negative (NEGATIVE) 11/12/17 20:00 RPR Titer Nonreactive (NONREACTIVE) 11/13/17 05:45 lab noted Assessment: 11/16/17 12:04 withdrawal sx Plan: medically supervised continue detox
[2017-11-16] MEDS: OLANZapine 10 MG TABLET PO SCH (22:38)
[2017-11-16] MEDS: hydrOXYzine PAMOATE 50 MG CAPSULE (FP) PO PRN (22:38)
[2017-11-16] MEDS: THIAMINE HCL 100 MG TABLET (FP) PO SCH (22:38)
[2017-11-17] MEDS ORDERED: METHADONE HCL 5 MG TABLET (FOR DETOX USE ONLY) PO ONE (06:00)
[2017-11-17] MEDS: NICOTINE 21 MG/24 HOURS TOPICAL PATCH TD SCH (09:55)
[2017-11-17] MEDS: PRENATAL VITAMINS W/ FOLIC ACID TABLET (FP) PO SCH (09:55)
[2017-11-17] MEDS: CLOTRIMAZOLE 1% CREAM 15 GM TUBE TP SCH (09:55)
--- NOTE | 2017-11-17 10:03 | DS ---
[facility] Detox Discharge Summary Admission Date: 11/12/17 Discharge Date: 11/17/17 - History Pertinent Past History: HEP C - Physical Exam Results Vital Signs: Vital Signs Temperature 97.9 F 11/17/17 06:11 Pulse Rate 71 11/17/17 06:11 Respiratory Rate 18 11/17/17 06:11 Blood Pressure 113/75 11/17/17 06:11 O2 Sat by Pulse Oximetry (%) Pertinent Admission Physical Exam Findings: WITHDRAWAL SX Vital Signs Temperature 97.9 F 11/17/17 06:11 Pulse Rate 71 11/17/17 06:11 Respiratory Rate 18 11/17/17 06:11 Blood Pressure 113/75 11/17/17 06:11 O2 Sat by Pulse Oximetry (%) Laboratory Last Values WBC 4.5 K/mm3 (4.0-10.0) D 11/13/17 05:45 RBC 4.88 M/mm3 (4.00-5.60) 11/13/17 05:45 Hgb 14.2 GM/dL (11.7-16.9) 11/13/17 05:45 Hct 43.8 % (35.4-49) 11/13/17 05:45 MCV 89.8 fl (80-96) 11/13/17 05:45 MCH 29.1 pg (25.7-33.7) 11/13/17 05:45 MCHC 32.4 g/dl (32.0-35.9) 11/13/17 05:45 RDW 13.5 % (11.9-15.9) 11/13/17 05:45 Plt Count 152 K/MM3 (134-434) D 11/13/17 05:45 MPV 10.9 fl (7.5-11.1) 11/13/17 05:45 Sodium 139 mmol/L (136-145) 11/13/17 05:45 Potassium 4.6 mmol/L (3.5-5.1) 11/13/17 05:45 Chloride 103 mmol/L (98-107) 11/13/17 05:45 Carbon Dioxide 29 mmol/L (21-32) 11/13/17 05:45 Anion Gap 7 (8-16) L 11/13/17 05:45 BUN 13 mg/dL (7-18) D 11/13/17 05:45 Creatinine 1.0 mg/dL (0.7-1.3) 11/13/17 05:45 Creat Clearance w eGFR > 60 (>60) 11/13/17 05:45 Random Glucose 96 mg/dL (74-106) 11/13/17 05:45 Calcium 9.0 mg/dL (8.5-10.1) 11/13/17 05:45 Total Bilirubin 0.7 mg/dL (0.2-1.0) D 11/13/17 05:45 AST 161 U/L (15-37) H D 11/13/17 05:45 ALT 234 U/L (12-78) H D 11/13/17 05:45 Alkaline Phosphatase 94 U/L (45-117) 11/13/17 05:45 Total Protein 8.5 g/dl (6.4-8.2) H 11/13/17 05:45 Albumin 3.9 g/dl (3.4-5.0) 11/13/17 05:45 Urine Color Yellow 11/12/17 20:00 Urine Appearance Clear 11/12/17 20:00 Urine pH 5.0 (5.0-8.0) 11/12/17 20:00 Ur Specific [place] 1.024 (1.001-1.035) 11/12/17 20:00 Urine Protein Negative (NEGATIVE) 11/12/17 20:00 Urine Glucose (UA) Negative (NEGATIVE) 11/12/17 20:00 Urine Ketones Negative (NEGATIVE) 11/12/17 20:00 Urine Blood Negative (NEGATIVE) 11/12/17 20:00 Urine Nitrite Negative (NEGATIVE) 11/12/17 20:00 Urine Bilirubin Negative (NEGATIVE) 11/12/17 20:00 Urine Urobilinogen Negative mg/dL (0.2-1.0) 11/12/17 20:00 Ur Leukocyte Esterase Negative (NEGATIVE) 11/12/17 20:00 RPR Titer Nonreactive (NONREACTIVE) 11/13/17 05:45 - Treatment Hospital Course: Detox Protocol Followed, Detoxed Safely, Responded well, Discharged Condition Good, Rehab Referral Accepted Patient has Accepted a Rehab Referral to: O/P NA MEETINGS - Medication Discharge Medications: Ambulatory Orders Olanzapine [Zyprexa] 10 mg PO HS #30 tablet 09/24/17 Olanzapine [ZyPREXA -] 10 mg PO HS #30 tablet 11/13/17 - Diagnosis (1) Opioid dependence with withdrawal Current Visit: No Status: Acute (2) Nicotine dependence Current Visit: No Status: Chronic Qualifiers: Nicotine product type: cigarettes Substance use status: uncomplicated Qualified Code(s): F17.210 - Nicotine dependence, cigarettes, uncomplicated - AMA Did Patient Leave Against Medical Advice: No
[2017-11-17 10:43] VITALS: BP 118/81; PULSE 67; TEMP 97.5
== END 2017-11-17 10:10 | disposition home or self-care (01) | DRG 773 ==
LOC: YASAS 12:11 → Y6N 18:17
PROVIDERS: ADMIT Internal Medicine; ATTEND Internal Medicine
PROC: HZ2ZZZZ Detoxification Services for Substance Abuse Treatment (ICD-10-PCS; principal; 2017-11-12)
DX: F11.23 Opioid dependence with withdrawal (principal); F17.210 Nicotine dependence, cigarettes, uncomplicated; F19.24 Other psychoactive substance dependence with psychoactive substance-induced mood disorder; F31.9 Bipolar disorder, unspecified; F20.0 Paranoid schizophrenia; E86.0 Dehydration; B18.2 Chronic viral hepatitis C; B35.3 Tinea pedis; Z91.5 Personal history of self-harm
CPT/HCPCS: 36415; 80053; 81003; 85027; 86593; 90688; 93005; 93010

== ENCOUNTER 2018-11-23 14:16 | Inpatient (IN) | payer OTHER ==
[2018-11-23 15:22] VITALS: BMI 21.9
--- NOTE | 2018-11-23 18:38 | HP ---
COWS - Scale Resting Pulse: 1= [place] 81-100 Sweatin= Chills/Flushing Restless Observation: 1= Difficult to Sit Still Pupil Size: 1= Pupils >than Normal Bone or Joint Aches: 2= Severe Diffuse Aches Runny Nose/ Eye Tearin= Nasal Congestion GI Upset > 30mins: 2= Nausea/Diarrhea Tremor Observation: 1= Tremor [place], Not Seen Yawning Observation: 1= 1-2x During Session Anxiety or Irritability: 1=Feels Anxious/Irritable Goose Flesh Skin: 3=Piloerection COWS Score: 15 CIWA Score - Admission Criteria OASAS Guidelines: Admission for Medically Managed Detox: Requires at least one of the followin. CIWA greater than 12 2. Seizures within the past 24 hours 3. Delirium tremens within the past 24 hours 4. Hallucinations within the past 24 hours 5. Acute intervention needed for co occurring medical disorder 6. Acute intervention needed for co occurring psychiatric disorder 7. Severe withdrawal that cannot be handled at a lower level of care (continued vomiting, continued diarrhea, abnormal vital signs) requiring intravenous medication and/or fluids 8. Admission ROS [facility] - [facility] Chief Complaint: here for heroin detox 52 yo with h/o depression, schizophrenia on zyprexa. Denies med problems. heroin 10 bags sniffing a day, last use 5 am cocaine- use denies smokes 1 ppd denies alcohol and other illicit drug use Utox- bruce, fen, opiates DUR- no controlled substances Allergies/Adverse Reactions: Allergies Allergy/AdvReac Type Severity Reaction Status Date / Time No Known Drug Allergies Allergy Verified 11/23/18 18:44 - Ebola screening Have you traveled outside of the country in the last 21 days: No Have you had contact with anyone from an Ebola affected area: No Have you been sick,other than usual withdrawal symptoms: No Do you have a fever: No - Review of Systems Constitutional: No Symptoms Reported EENT: reports: No Symptoms Reported Respiratory: reports: No Symptoms reported Cardiac: reports: No Symptoms Reported GI: reports: No Symptoms Reported : reports: No Symptoms Reported Musculoskeletal: reports: No Symptoms Reported Integumentary: reports: No Symptoms Reported Neuro: reports: No Symptoms reported Endocrine: reports: No Symptoms Reported Hematology: reports: No Symptoms Reported Psychiatric: reports: No Sypmtoms Reported Other Systems: Reviewed and Negative Patient History - Patient Medical History Hx Anemia: No Hx Asthma: No Hx Chronic Obstructive Pulmonary Disease (COPD): No Hx Cancer: No Hx Cardiac Disorders: No Hx Congestive Heart Failure: No Hx Hypertension: No Hx Hypercholesterolemia: No Hx Pacemaker: No HX Cerebrovascular Accident: No Hx Seizures: No Hx Dementia: No Hx Diabetes: No Hx Gastrointestinal Disorders: No Hx Liver Disease: Yes (Hep C) Hx Genitourinary Disorders: No Hx Sexually Transmitted Disorders: Yes (Syphilis (treated)) Hx Renal Disease (ESRD): No Hx Thyroid Disease: No Hx Human Immunodeficiency Virus (HIV): No Hx Hepatitis C: Yes (COMPLETED [place] ) Hx Depression: Yes Hx Suicide Attempt: No Hx Bipolar Disorder: Yes (NOT ON MEDS ) Hx Schizophrenia: No - Patient Surgical History Past Surgical History: Yes Hx Neurologic Surgery: No Hx Cataract Extraction: No Hx Cardiac Surgery: No Hx Lung Surgery: No Hx Breast Surgery: No Hx Breast Biopsy: No Hx Abdominal Surgery: No Hx Appendectomy: No Hx Cholecystectomy: No Hx Genitourinary Surgery: No Hx Section: No Hx Orthopedic Surgery: No Other Surgical History: laceration, left side of neck Anesthesia Reaction: No - PPD History Previous Implant?: Yes Documented Results: Negative w/o proof Date: 01/15/17 Results: 0.0 - Smoking Cessation Smoking history: Current every day smoker Have you smoked in the past 12 months: Yes Aproximately how many cigarettes per day: 20 Cigars Per Day: 0 Hx Chewing Tobacco Use: No Initiated information on smoking cessation: Yes 'Breaking Loose' booklet given: 11/23/18 - Substance & Tx. History Hx Alcohol Use: No Hx Substance Use: Yes Substance Use Type: Heroin Hx Substance Use Treatment: Yes - Substances Abused Heroin Route: Inhalation Frequency: Daily Amount used: 1-2 bags Age of first use: 13 Date of Last Use: 11/23/18 Family Disease History - Family Disease History Family Disease History: Diabetes: Sister, Heart Disease: Sister, Respiratory: Mother ( Asthma ), Other: Father (Alcoholism and kidney failure ) Admission Physical Exam BHS - Vital Signs Vital Signs: Vital Signs - 24 hr 11/23/18 15:19 Temperature 97.6 F Pulse Rate 60 Respiratory 18 Rate Blood Pressure 98/65 - Physical General Appearance: Yes: Within Normal Limits, Cachetic, Thin HEENTM: Yes: Within Normal Limits, EOMI, Hearing grossly Normal, YANELI, Fernandez Respiratory: Yes: Within Normal Limits, Lungs Clear Neck: Yes: Within Normal Limits Cardiology: Yes: Within Normal Limits, S1, S2 Abdominal: Yes: Within Normal Limits Back: Yes: Within Normal Limits Musculoskeletal: Yes: Within Normal Limits Extremities: Yes: Within Normal Limits Neurological: Yes: Within Normal Limits Integumentary: Yes: Within Normal Limits Lymphatic: Yes: Within Normal Limits - Diagnostic (1) Opioid dependence with withdrawal Current Visit: No Status: Acute (2) Bipolar disorder Current Visit: No Status: Chronic (3) Depression Current Visit: No Status: Chronic (4) Hepatitis C Current Visit: No Status: Chronic (5) Nicotine dependence Current Visit: No Status: Chronic Qualifiers: Nicotine product type: cigarettes Substance use status: uncomplicated Qualified Code(s): F17.210 - Nicotine dependence, cigarettes, uncomplicated BHS Breath Alcohol Content Breath Alcohol Content: 0 Urine Drug Screen - Results Drug Screen Negative: No Urine Drug Screen Results: BRUCE-Cocaine, OPI-Opiates, FEN-Fentanyl
[2018-11-23] MEDS ORDERED: LOPERAMIDE HCL 2 MG CAPSULE PO PRN (18:52)
[2018-11-23] MEDS ORDERED: guaiFENesin/D-METHORPHAN HB 10 ML UNIT-DOSE CUPS PO PRN (18:52)
[2018-11-23] MEDS ORDERED: P-EPHED 60MG/TRIPROLIDI 2.5MG TABLET PO PRN (18:52)
[2018-11-23] MEDS ORDERED: MAGNESIUM HYDROX 2400MG/30ML ORAL SUSPENSION 30 ML CUP PO PRN (18:52)
[2018-11-23] MEDS ORDERED: MAGNESIUM CITRATE 300 ML BOTTLE PO PRN (18:52)
[2018-11-23] MEDS ORDERED: MAG HYDROX/AL HYDROX/SIMETH 30 ML UNIT-DOSE CUP PO PRN (18:52)
[2018-11-23] MEDS ORDERED: ACETAMINOPHEN 325 MG TABLET (FP) PO PRN (18:52)
[2018-11-23] MEDS ORDERED: MENTHOL/PHENOL 1 EACH UD MM PRN (18:52)
[2018-11-23] MEDS ORDERED: diazePAM 5 MG TABLET PO PRN (18:54)
[2018-11-23] MEDS ORDERED: METHADONE HCL 10 MG TABLET (FOR DETOX USE ONLY) PO ONE ×2 (20:00→23:00)
[2018-11-23] MEDS ORDERED: MELATONIN 5 MG TABLETS PO PRN (22:00)
[2018-11-23] MEDS: THIAMINE HCL 100 MG TABLET (FP) PO SCH (22:25)
[2018-11-24 02:20] LABS: URINE APPEARANCE CLEAR; URINE BILIRUBIN NEGATIVE (<2.0 mg/dL); URINE COLOR YELLOW; URINE GLUCOSE (UA) NEGATIVE (NEGATIVE); URINE KETONE NEGATIVE (NEGATIVE); URINE LEUK ESTERASE NEGATIVE (NEGATIVE); URINE NITRITE NEGATIVE (NEGATIVE); URINE PROTEIN NEGATIVE (NEGATIVE)
--- NOTE | 2018-11-24 07:21 | CONSULT ---
[facility] Psychiatric Consult - Data Date of interview: 11/24/18 Admission source: Self-referred Identifying data: Mr Leger is a 52 years old single [place] male, father of a 20 years old son, unemployed on SSI, homeless seeking detox treatment for opioid Substance Abuse History: Reports history of opioid use. He started using heroin at age 13, consumes 1-2 bags daily. Last used on 11/23/18 Medical History: Significant for arthritis and a history of treatment for hepatitis C, syphilis and gonorrhea. Smokes cigarettes 1 ppd Psychiatric History: Patient is well known to this facility from multiple previous inpatient detox admissions. He is a poor historian. He reported no history of psychiatric hospitalizations. However during a period of incarceration in [place] long time ago, he was diagnosed with Schizophrenia and treated with Olanzapine. Reports no connection with psychiatric OPD care providers. However reports receiving psychiatric treatment whenever admitted to detox/rehabilitation settings. He was last admitted to detox in this facility where he was prescribed Zyprexa 10 mg po HS by Dr Reina on 11/13/18. Patient reports one suicidal attempt by cutting left side of neck(healed scar present) a few years ago. At present, denies experiencing psychotic, manic or depressive symptoms. S/H ideations Physical/Sexual Abuse/Trauma History: Denies history of emotional, physical or sexual abuse as well as DV relationship Additional Comment: Reports history of 5 previous arrests including one felony conviction. Denies being on parole/probation at present Mental Status Exam - Mental Status Exam Alert and Oriented to: Place, Person Cognitive Function: Fair Patient Appearance: Well Groomed Mood: Hopeful, Euthymic Patient Behavior: Cooperative Speech Pattern: Clear Voice Loudness: Normal Thought Process: Intact Thought Disorder: Not Present Hallucinations: Denies Suicidal Ideation: Denies Homicidal Ideation: Denies Insight/Judgement: Fair Sleep: Poorly Appetite: Good Muscle strength/Tone: Normal Gait/Station: Normal Psychiatric Findings - Problem List ([place] 1, 2,3) (1) Schizophrenia, paranoid type Current Visit: No Status: Chronic (2) Schizoaffective disorder Current Visit: Yes Status: Ruled-out (3) Bipolar disorder Current Visit: Yes Status: Ruled-out (4) Substance-induced sleep disorder Current Visit: Yes Status: Acute (5) Opioid dependence with withdrawal Current Visit: No Status: Acute (6) Nicotine dependence Current Visit: No Status: Chronic Qualifiers: Nicotine product type: cigarettes Substance use status: uncomplicated Qualified Code(s): F17.210 - Nicotine dependence, cigarettes, uncomplicated (7) Hepatitis C Current Visit: No Status: Resolved - Initial Treatment Plan Initial Treatment Plan: 1) Continue Zyprexa 10 mg po HS. 2) Continue inpatient detoxification
--- NOTE | 2018-11-24 09:34 | PN ---
BHS COWS - Scale Resting Pulse: 0= [place] 80 or Below Sweatin= Chills/Flushing Restless Observation: 3= Extraneous Movement Pupil Size: 1= Pupils >than Normal Bone or Joint Aches: 2= Severe Diffuse Aches Runny Nose/ Eye Tearin= Nasal Congestion GI Upset > 30mins: 2= Nausea/Diarrhea Tremor Observation of Outstretched Hands: 2= Slight Tremor Visible Yawning Observation: 1= 1-2x During Session Anxiety or Irritability: 2=Irritable/Anxious Goose Flesh Skin: 0=Smooth Skin COWS Score: 15 BHS Progress Note (SOAP) Subjective: alert,irritable,anxious,interrupted sleep,tremor,pain in the body and back Objective: 11/24/18 09:33 Vital Signs Temperature 98.2 F 11/24/18 09:16 Pulse Rate 73 11/24/18 09:16 Respiratory Rate 18 11/24/18 09:16 Blood Pressure 100/59 L 11/24/18 09:16 O2 Sat by Pulse Oximetry (%) 11/24/18 09:33 labs pending Assessment: 11/24/18 09:34 withdrawal symptom Plan: continue detox
[2018-11-24] MEDS ORDERED: METHADONE HCL 10 MG TABLET (FOR DETOX USE ONLY) PO ONE (10:00)
[2018-11-24 10:19] LABS: HEMATOCRIT 39.1 % (35.4-49); HEMOGLOBIN 13.3 GM/dL (11.7-16.9); MCH 30.1 pg (25.7-33.7); MCHC 34.1 g/dl (32.0-35.9); MEAN CELL VOLUME 88.3 fl (80-96); MEAN PLT VOLUME 8.4 fl (7.5-11.1); PLATELET COUNT 141 K/MM3 (134-434); RBC 4.43 M/mm3 (4.00-5.60); RDW 13.5 % (11.9-15.9); WHITE BLOOD COUNT 3.2 K/mm3 (4.0-10.0)
[2018-11-24] MEDS: PRENATAL VITAMINS W/ FOLIC ACID TABLET (FP) PO SCH (10:27)
[2018-11-24 10:30] LABS: ALBUMIN 3.4 g/dl (3.4-5.0); ALK PHOS 79 U/L (45-117); ANION GAP 6 MMOL/L (8-16); BILIRUBIN,TOTAL 0.3 mg/dL (0.2-1); BLOOD UREA NITROGEN 20 mg/dL (7-18); CALCIUM 8.8 mg/dL (8.5-10.1); CHLORIDE 103 mmol/L (98-107); CO2 28 mmol/L (21-32); GLUCOSE,RANDOM 82 mg/dL (74-106); POTASSIUM 4.3 mmol/L (3.5-5.1); SGOT/AST 64 U/L (15-37); SGPT/ALT 94 U/L (13-61); SODIUM 138 mmol/L (136-145); TOT PROT 7.6 g/dl (6.4-8.2)
[2018-11-24] MEDS: IBUPROFEN 400 MG TABLET (FP) PO PRN (11:59)
--- NOTE | 2018-11-24 15:10 | EKG ---
Test Reason : Blood Pressure : / mmHG Vent. Rate : 051 BPM Atrial Rate : 051 BPM P-R Int : 194 ms QRS Dur : 078 ms QT Int : 416 ms P-R-T Axes : 073 063 052 degrees QTc Int : 383 ms SINUS BRADYCARDIA OTHERWISE NORMAL ECG Confirmed by Rohith Lock MD ([id number]) on 11/24/2018 3:10:33 PM Referred By: Confirmed By:Rohith Lock MD
[2018-11-24] MEDS: THIAMINE HCL 100 MG TABLET (FP) PO SCH (23:28)
[2018-11-25] MEDS ORDERED: METHADONE HCL 5 MG TABLET (FOR DETOX USE ONLY) PO ONE (10:00)
[2018-11-25] MEDS: hydrOXYzine PAMOATE 50 MG CAPSULE (FP) PO PRN (10:18)
[2018-11-25] MEDS: PRENATAL VITAMINS W/ FOLIC ACID TABLET (FP) PO SCH (10:18)
[2018-11-25] MEDS ORDERED: LIDOCAINE VISCOUS 2% ORAL/TOP 20 ML UNIT-DOSE CUP MM PRN (13:48)
--- NOTE | 2018-11-25 17:01 | PN ---
BHS COWS - Scale Resting Pulse: 0= [place] 80 or Below Sweatin= Chills/Flushing Restless Observation: 1= Difficult to Sit Still Pupil Size: 0= Normal to Room Light Bone or Joint Aches: 2= Severe Diffuse Aches Runny Nose/ Eye Tearin= Nasal Congestion GI Upset > 30mins: 0= None Tremor Observation of Outstretched Hands: 2= Slight Tremor Visible Yawning Observation: 1= 1-2x During Session Anxiety or Irritability: 2=Irritable/Anxious Goose Flesh Skin: 0=Smooth Skin COWS Score: 10 BHS Progress Note (SOAP) Subjective: Nasal Congestion, Interrupted sleep, Tremors, Sweating, Body Aches. Objective: PATIENT A & O X 3, OBSERVED AMBULATING ON UNIT. IN NO ACUTE DISTRESS. 11/25/18 16:57 Vital Signs Temperature 98.2 F 11/25/18 12:49 Pulse Rate 54 L 11/25/18 12:49 Respiratory Rate 18 11/25/18 12:49 Blood Pressure 111/74 11/25/18 12:49 O2 Sat by Pulse Oximetry (%) Laboratory Tests 11/23/18 11/24/18 11/24/18 22:50 07:00 07:00 WBC 3.2 L RBC 4.43 Hgb 13.3 Hct 39.1 MCV 88.3 MCH 30.1 MCHC 34.1 RDW 13.5 Plt Count 141 MPV 8.4 D Sodium Potassium Chloride Carbon Dioxide Anion Gap BUN Creatinine Creat Clearance w eGFR Random Glucose Calcium Total Bilirubin AST ALT Alkaline Phosphatase Total Protein Albumin Urine Color Yellow Urine Appearance Clear Urine pH 7.0 D Ur Specific [place] 1.021 Urine Protein Negative Urine Glucose (UA) Negative Urine Ketones Negative Urine Blood Negative Urine Nitrite Negative Urine Bilirubin Negative Urine Urobilinogen 2.0 Ur Leukocyte Esterase Negative RPR Titer HIV 1&2 Antibody Screen Negative HIV P24 Antigen Negative 11/24/18 11/24/18 07:00 07:00 WBC RBC Hgb Hct MCV MCH MCHC RDW Plt Count MPV Sodium 138 Potassium 4.3 Chloride 103 Carbon Dioxide 28 Anion Gap 6 L BUN 20 H Creatinine 1.0 Creat Clearance w eGFR > 60 Random Glucose 82 Calcium 8.8 Total Bilirubin 0.3 AST 64 H ALT 94 H Alkaline Phosphatase 79 Total Protein 7.6 Albumin 3.4 Urine Color Urine Appearance Urine pH Ur Specific [place] Urine Protein Urine Glucose (UA) Urine Ketones Urine Blood Urine Nitrite Urine Bilirubin Urine Urobilinogen Ur Leukocyte Esterase RPR Titer Nonreactive HIV 1&2 Antibody Screen HIV P24 Antigen LABS NOTED. Assessment: 11/25/18 16:57 WITHDRAWAL SYMPTOMS. Plan: CONTINUE DETOX. INCREASE DAILY PO FLUID INTAKE. PATIENT REPORTS PAIN FROM "CRACKED TOOTH" IN HIS MOUTH. NO OBVIOUS SWELLING OR ERYTHEMA NOTED ON VISUALIZATION OF PATIENT'S MOUTH. PRN IBUPFOREN OFFERED FOR PAIN, VISCOUS LIDOCAINE PRN ORDERED FOR ORAL PAIN.
[2018-11-25] MEDS: THIAMINE HCL 100 MG TABLET (FP) PO SCH (23:41)
[2018-11-26] MEDS ORDERED: METHADONE HCL 5 MG TABLET (FOR DETOX USE ONLY) PO ONE (10:00)
[2018-11-26] MEDS: IBUPROFEN 400 MG TABLET (FP) PO PRN (10:35)
[2018-11-26] MEDS: PRENATAL VITAMINS W/ FOLIC ACID TABLET (FP) PO SCH (10:35)
[2018-11-26] MEDS: hydrOXYzine PAMOATE 50 MG CAPSULE (FP) PO PRN (10:36)
[2018-11-26] MEDS ORDERED: BACLOFEN 10 MG TABLET (FP) PO PRN (13:10)
[2018-11-26] MEDS: TOLNAFTATE 1% CREAM 15 GM TUBE TP SCH ×2 (14:38→23:19)
--- NOTE | 2018-11-26 15:00 | PN ---
BHS Progress Note (SOAP) Subjective: Tremors, Sweating, Body Aches, Anxious. Objective: PATIENT A & O X 3, OBSERVED AMBULATING ON UNIT. IN NO ACUTE DISTRESS. 11/26/18 14:58 Vital Signs Temperature 98.1 F 11/26/18 13:52 Pulse Rate 67 11/26/18 13:52 Respiratory Rate 16 11/26/18 13:52 Blood Pressure 108/80 11/26/18 13:52 O2 Sat by Pulse Oximetry (%) Laboratory Tests 11/23/18 11/24/18 11/24/18 22:50 07:00 07:00 WBC 3.2 L RBC 4.43 Hgb 13.3 Hct 39.1 MCV 88.3 MCH 30.1 MCHC 34.1 RDW 13.5 Plt Count 141 MPV 8.4 D Sodium Potassium Chloride Carbon Dioxide Anion Gap BUN Creatinine Creat Clearance w eGFR Random Glucose Calcium Total Bilirubin AST ALT Alkaline Phosphatase Total Protein Albumin Urine Color Yellow Urine Appearance Clear Urine pH 7.0 D Ur Specific [place] 1.021 Urine Protein Negative Urine Glucose (UA) Negative Urine Ketones Negative Urine Blood Negative Urine Nitrite Negative Urine Bilirubin Negative Urine Urobilinogen 2.0 Ur Leukocyte Esterase Negative RPR Titer HIV 1&2 Antibody Screen Negative HIV P24 Antigen Negative 11/24/18 11/24/18 07:00 07:00 WBC RBC Hgb Hct MCV MCH MCHC RDW Plt Count MPV Sodium 138 Potassium 4.3 Chloride 103 Carbon Dioxide 28 Anion Gap 6 L BUN 20 H Creatinine 1.0 Creat Clearance w eGFR > 60 Random Glucose 82 Calcium 8.8 Total Bilirubin 0.3 AST 64 H ALT 94 H Alkaline Phosphatase 79 Total Protein 7.6 Albumin 3.4 Urine Color Urine Appearance Urine pH Ur Specific [place] Urine Protein Urine Glucose (UA) Urine Ketones Urine Blood Urine Nitrite Urine Bilirubin Urine Urobilinogen Ur Leukocyte Esterase RPR Titer Nonreactive HIV 1&2 Antibody Screen HIV P24 Antigen LABS NOTED. Assessment: 11/26/18 14:58 WITHDRAWAL SYMPTOMS. LEUKOPENIA. 11/26/18 15:00 Plan: CONTINUE DETOX. PRN FLEXERIL FOR BODY ACHES / MUSCLE SPASMS. INCREASE DAILY PO FLUID INTAKE.
[2018-11-26] MEDS: THIAMINE HCL 100 MG TABLET (FP) PO SCH (23:19)
[2018-11-27 09:10] VITALS: BP 130/71; PULSE 65; TEMP 97.9
[2018-11-27] MEDS ORDERED: METHADONE HCL 10 MG TABLET (FOR DETOX USE ONLY) PO ONE (10:00)
--- NOTE | 2018-11-27 10:05 | PN ---
BHS Progress Note Note: pt is feeling better and wants to go to rehab today. no s/s of withdrawals noted. will be d/c today.
--- NOTE | 2018-11-27 10:07 | DS ---
[facility] Detox Discharge Summary Admission Date: 11/23/18 Discharge Date: 11/27/18 - History Present History: Opioid Dependence - Physical Exam Results Vital Signs: Vital Signs Temperature 97.9 F 11/27/18 09:09 Pulse Rate 65 11/27/18 09:09 Respiratory Rate 18 11/27/18 09:09 Blood Pressure 130/71 11/27/18 09:09 O2 Sat by Pulse Oximetry (%) - Treatment Hospital Course: Detox Protocol Followed, Detoxed Safely, Responded well, Discharged Condition Good, Rehab Referral Accepted - Medication Discharge Medications: Ambulatory Orders Olanzapine [ZyPREXA -] 10 mg PO HS #30 tablet 11/13/17 - Diagnosis (1) Leukopenia Current Visit: Yes Status: Acute Qualifiers: Neutropenia type: unspecified (2) Substance-induced sleep disorder Current Visit: Yes Status: Acute (3) Bipolar disorder Current Visit: Yes Status: Ruled-out (4) Schizoaffective disorder Current Visit: Yes Status: Ruled-out (5) Dehydration Current Visit: No Status: Acute (6) Drug-induced mood disorder Current Visit: No Status: Acute (7) Insomnia Current Visit: No Status: Acute Qualifiers: Insomnia type: unspecified Qualified Code(s): G47.00 - Insomnia, unspecified (8) Opioid dependence with withdrawal Current Visit: Yes Status: Chronic (9) URI (upper respiratory infection) Current Visit: Yes Status: Acute Qualifiers: URI type: acute nasopharyngitis (common cold) Qualified Code(s): J00 - Acute nasopharyngitis [common cold] (10) Bipolar disorder Current Visit: No Status: Chronic (11) Depression Current Visit: No Status: Chronic (12) Nicotine dependence Current Visit: Yes Status: Chronic Qualifiers: Nicotine product type: cigarettes Substance use status: uncomplicated Qualified Code(s): F17.210 - Nicotine dependence, cigarettes, uncomplicated (13) Schizophrenia, paranoid type Current Visit: No Status: Chronic (14) Hepatitis C Current Visit: No Status: Resolved Qualifiers: Viral hepatitis chronicity: carrier Qualified Code(s): B18.2 - Chronic viral hepatitis C - AMA Did Patient Leave Against Medical Advice: No (referred to inpatient rehab [facility])
[2018-11-27] MEDS: PRENATAL VITAMINS W/ FOLIC ACID TABLET (FP) PO SCH (10:36)
[2018-11-27] MEDS: TOLNAFTATE 1% CREAM 15 GM TUBE TP SCH (10:36)
[2018-11-28] MEDS ORDERED: METHADONE HCL 5 MG TABLET (FOR DETOX USE ONLY) PO ONE (06:00)
== END 2018-11-27 12:22 | disposition home or self-care (01) | DRG 773 ==
LOC: YASAS 14:16 → Y6N 20:20
PROVIDERS: ADMIT Surgery; ATTEND Surgery
PROC: HZ2ZZZZ Detoxification Services for Substance Abuse Treatment (ICD-10-PCS; principal; 2018-11-23)
DX: F11.23 Opioid dependence with withdrawal (principal); F17.210 Nicotine dependence, cigarettes, uncomplicated; F19.24 Other psychoactive substance dependence with psychoactive substance-induced mood disorder; F19.282 Other psychoactive substance dependence with psychoactive substance-induced sleep disorder; F31.9 Bipolar disorder, unspecified; F32.9 Major depressive disorder, single episode, unspecified; F20.0 Paranoid schizophrenia; F25.9 Schizoaffective disorder, unspecified; D72.819 Decreased white blood cell count, unspecified; E86.0 Dehydration; G47.00 Insomnia, unspecified; J00 Acute nasopharyngitis [common cold]; B18.2 Chronic viral hepatitis C; Z87.438 Personal history of other diseases of male genital organs
CPT/HCPCS: 36415; 80053; 81003; 85027; 86593; 87389; 93005; 93010; J0475

== ENCOUNTER 2018-11-27 12:44 | Inpatient (IN) | payer OTHER ==
--- NOTE | 2018-11-27 10:08 | HP ---
[facility] Rehab Assess/Revision - Admission History Admitted to Rehab from: [facility] - Findings Detox History & Physical reviewed: Yes Concur with findings: Yes Inpatient Rehab Admission - Rehab Decision to Admit Inpatient rehab admission?: Yes - Initial Determination Are CD services needed?: Yes Free of communicable disease: Yes Not in need of hospitalization: Yes - Rehab Admission Criteria Previous failed treatment: Yes Poor recovery environment: Yes Comorbidities: Yes Lacks judgement: Yes Patient is meeting Inpatient Rehab admission criteria:: Yes
[~2018-11-27 12:44] MED LIST: ACETAMINOPHEN 325 MG TABLET (FP) PO PRN; IBUPROFEN 400 MG TABLET (FP) PO PRN; LOPERAMIDE HCL 2 MG CAPSULE PO PRN; MAG HYDROX/AL HYDROX/SIMETH 30 ML UNIT-DOSE CUP PO PRN; MAGNESIUM CITRATE 300 ML BOTTLE PO PRN; MAGNESIUM HYDROX 2400MG/30ML ORAL SUSPENSION 30 ML CUP PO PRN; MENTHOL/PHENOL 1 EACH UD MM PRN; P-EPHED 60MG/TRIPROLIDI 2.5MG TABLET PO PRN; guaiFENesin/D-METHORPHAN HB 10 ML UNIT-DOSE CUPS PO PRN; hydrOXYzine PAMOATE 50 MG CAPSULE (FP) PO PRN
--- NOTE | 2018-11-27 16:14 | CONSULT ---
[facility] Psychiatric Consult - Data Date of interview: 11/27/18 Admission source: [address] [place] [address] Identifying data: This is one of the [facility] for this 52 years old single,father of 20 yo,undomiciled, supported by [facility]. Substance Abuse History: heroin since 13 yo,(sniffing 10-15 bags daily)., longest abstinence is only 2 years. Medical History: Significant for HepC,H/O leucopenia,H/o STD treated.. Psychiatric History: patient is poor historian.Report no history of psychiatric admissions.according to him was dx with schizophrenia many years ago while being incarcerated in [place].patient was on psychotropic medications.No recollection of which. reports long history of mental illness.patient rest rted zyprexa 10 mg po hs while being in detox upstairs and is willing to continue current medications. Physical/Sexual Abuse/Trauma History: patient served a few [employer] times(10 years, then 5 years,1 year,a few months long). Mental Status Exam - Mental Status Exam Alert and Oriented to: Time, Place, Person Cognitive Function: Grossly Intact Patient Appearance: Unkempt Mood: Sad, Anxious Affect: Mood Congruent, Labile Patient Behavior: Cooperative Speech Pattern: Clear Voice Loudness: Normal Thought Process: Goal Oriented Thought Disorder: Not Present Hallucinations: Denies Suicidal Ideation: Denies Homicidal Ideation: Denies Insight/Judgement: Fair Sleep: Difficulty falling asleep Appetite: Good Muscle strength/Tone: Normal Gait/Station: Normal Psychiatric Findings - Problem List ([place] 1, 2,3) (1) Leukopenia Current Visit: Yes Status: Chronic (2) Bipolar disorder Current Visit: Yes Status: Chronic (3) Opioid dependence Current Visit: Yes Status: Chronic (4) Hepatitis C Current Visit: Yes Status: Chronic Qualifiers: (5) Nicotine dependence Current Visit: Yes Status: Chronic Qualifiers: - Initial Treatment Plan Initial Treatment Plan: Continue Zyprexa 10 mg po hs. Will monitor progress.
[2018-11-27] MEDS: THIAMINE HCL 100 MG TABLET (FP) PO SCH (21:06)
[2018-11-27] MEDS: OLANZapine 10 MG TABLET PO SCH (21:07)
[2018-11-28] MEDS: PRENATAL VITAMINS W/ FOLIC ACID TABLET (FP) PO SCH (09:51)
[2018-11-28] MEDS: NICOTINE 21 MG/24 HOURS TOPICAL PATCH TD SCH (09:52)
[2018-11-28] MEDS: THIAMINE HCL 100 MG TABLET (FP) PO SCH (21:14)
[2018-11-28] MEDS: OLANZapine 10 MG TABLET PO SCH (21:14)
[2018-11-29] MEDS: PRENATAL VITAMINS W/ FOLIC ACID TABLET (FP) PO SCH (09:57)
[2018-11-29] MEDS: NICOTINE 21 MG/24 HOURS TOPICAL PATCH TD SCH (09:58)
[2018-11-29] MEDS: OLANZapine 10 MG TABLET PO SCH (21:15)
[2018-11-29] MEDS: MELATONIN 5 MG TABLETS PO PRN (21:16)
[2018-11-29] MEDS: THIAMINE HCL 100 MG TABLET (FP) PO SCH (21:16)
[2018-11-30] MEDS: NICOTINE 21 MG/24 HOURS TOPICAL PATCH TD SCH (10:11)
[2018-11-30] MEDS: PRENATAL VITAMINS W/ FOLIC ACID TABLET (FP) PO SCH (10:11)
[2018-11-30] MEDS: THIAMINE HCL 100 MG TABLET (FP) PO SCH (21:12)
[2018-11-30] MEDS: OLANZapine 10 MG TABLET PO SCH (21:12)
[2018-11-30] MEDS: MELATONIN 5 MG TABLETS PO PRN (21:13)
[2018-12-01 07:04] VITALS: TEMP 97.9
[2018-12-01] MEDS: NICOTINE 21 MG/24 HOURS TOPICAL PATCH TD SCH (11:08)
[2018-12-01] MEDS: PRENATAL VITAMINS W/ FOLIC ACID TABLET (FP) PO SCH (11:13)
[2018-12-01] MEDS: OLANZapine 10 MG TABLET PO SCH (21:18)
[2018-12-01] MEDS: THIAMINE HCL 100 MG TABLET (FP) PO SCH (21:18)
[2018-12-02 06:49] VITALS: BP 125/81; PULSE 65
[2018-12-02] MEDS: PRENATAL VITAMINS W/ FOLIC ACID TABLET (FP) PO SCH (09:38)
[2018-12-02] MEDS: NICOTINE 21 MG/24 HOURS TOPICAL PATCH TD SCH (09:38)
--- NOTE | 2018-12-02 11:56 | PN ---
[facility] Progress Note Note: PT STATES TO NURSE THE DESIRE TO LEAVE TREATMENT. PT WAS SEEN BY THIS CARD GRADER AND PT STATES HE IS GOING HOME TO HELP HIS SISTER WITH FAMILY CHORES. PT COMPLETED DETOX ON 11/27/18 AND REFERRED TO REHAB SAME DAY. PT WAS SEEN BY HIS COUNSELOR, KARLEY VILLA AND PT REFERRED TO [facility] ON [address] [place] [address] FOR CD AFTERCARE. PT ALSO REPORTS HE GOES TO PCP AT A CLINIC ON [facility] BUT UNABLE TO REMEMBER THE NAME. Vital Signs - 24 hr 12/02/18 12/02/18 12/02/18 00:30 03:30 06:48 Temperature 97.9 F Pulse Rate 65 Respiratory 18 18 16 Rate Blood Pressure 125/81 NAD MEDICALLY STABLE PLAN:PT SIGNED OUT AMA FOLLOW UP WITH [facility] RECOMMENDED ON 12/03/18 AT 9:00 A.M FOLLOW UP WITH PCP ON [facility]
== END 2018-12-02 13:00 | disposition left against medical advice (07) | DRG 770 ==
LOC: YASAS 12:44 → Y5N 12:45
PROVIDERS: ADMIT Neuromusculoskeletal Medicine & OMM; ATTEND Neuromusculoskeletal Medicine & OMM
PROC: HZ42ZZZ Group Counseling for Substance Abuse Treatment, Cognitive-Behavioral (ICD-10-PCS; principal; 2018-11-27)
DX: F11.20 Opioid dependence, uncomplicated (principal); F17.210 Nicotine dependence, cigarettes, uncomplicated; F31.9 Bipolar disorder, unspecified; D72.819 Decreased white blood cell count, unspecified; B18.2 Chronic viral hepatitis C; Z87.438 Personal history of other diseases of male genital organs

== ENCOUNTER 2022-05-27 14:49 | Inpatient (IN) | payer OTHER ==
[2022-05-27 15:28] VITALS: BMI 21.2
[2022-05-27] MEDS ORDERED: MAGNESIUM HYDROX 2400MG/30ML ORAL SUSPENSION 30 ML CUP PO PRN (17:33)
[2022-05-27] MEDS ORDERED: methaDONE HCL 10 MG TABLET (FOR DETOX USE ONLY) PO ONE (17:33)
[2022-05-27] MEDS ORDERED: cloNIDine HCL 0.1 MG TABLET PO PRN (17:33)
[2022-05-27] MEDS ORDERED: IBUPROFEN 600 MG TABLET (FP) PO PRN (17:33)
[2022-05-27] MEDS ORDERED: METHOCARBAMOL 500 MG TABLET PO PRN (17:33)
[2022-05-27] MEDS ORDERED: BENZOCAINE/MENTHOL (CHLORASEPTIC ) LOZENGE MM PRN (17:33)
[2022-05-27] MEDS ORDERED: MAG HYDROX/AL HYDROX/SIMETH 30 ML UNIT-DOSE CUP PO PRN (17:33)
[2022-05-27] MEDS ORDERED: IBUPROFEN 400 MG TABLET (FP) PO PRN (17:33)
[2022-05-27] MEDS ORDERED: ACETAMINOPHEN 325 MG TABLET (FP) PO PRN ×2 (17:33)
[2022-05-27] MEDS ORDERED: MAGNESIUM CITRATE 300 ML BOTTLE PO PRN (17:33)
[2022-05-27] MEDS ORDERED: ONDANSETRON *ODT* 4 MG TABLET SL PRN (17:33)
[2022-05-27] MEDS ORDERED: NICOTINE 10 MG CARTRIDGE (INHALER) IH PRN (17:33)
[2022-05-27] MEDS ORDERED: DICYCLOMINE HCL 10 MG CAPSULE PO PRN (17:33)
[2022-05-27] MEDS ORDERED: LOPERAMIDE HCL 2 MG CAPSULE PO PRN (17:33)
[2022-05-27] MEDS ORDERED: BISMUTH SUBSALICYLATE 524 MG/30 ML PO PRN (17:33)
[2022-05-27] MEDS: hydrOXYzine PAMOATE 25 MG CAPSULE (FP) PO SCH ×2 (18:24→22:31)
[2022-05-27] MEDS: PRENATAL VITAMINS W/ FOLIC ACID TABLET (FP) PO SCH (18:24)
[2022-05-27] MEDS ORDERED: MELATONIN 5 MG TABLETS PO SCH (22:00)
[2022-05-27] MEDS ORDERED: THIAMINE HCL 100 MG TABLET (FP) PO SCH (22:00)
[2022-05-28] MEDS: hydrOXYzine PAMOATE 25 MG CAPSULE (FP) PO SCH ×4 (05:39→18:13)
[2022-05-28 08:31] VITALS: RESP 18
[2022-05-28] MEDS: PRENATAL VITAMINS W/ FOLIC ACID TABLET (FP) PO SCH (10:23)
[2022-05-28 18:57] VITALS: BP 114/68; PULSE 67; TEMP 99.5
[2022-05-29] MEDS ORDERED: methaDONE HCL 10 MG TABLET (FOR DETOX USE ONLY) PO ONE (10:00)
[2022-05-31] MEDS ORDERED: methaDONE HCL 10 MG TABLET (FOR DETOX USE ONLY) PO ONE (10:00)
== END 2022-05-28 19:05 | disposition left against medical advice (07) | DRG 770 ==
LOC: YASAS 14:49 → Y3N 17:27
PROVIDERS: ADMIT Allergy & Immunology; ATTEND Surgery
PROC: HZ2ZZZZ Detoxification Services for Substance Abuse Treatment (ICD-10-PCS; principal; 2022-05-27)
DX: F11.23 Opioid dependence with withdrawal (principal); F12.20 Cannabis dependence, uncomplicated; F17.210 Nicotine dependence, cigarettes, uncomplicated; F19.24 Other psychoactive substance dependence with psychoactive substance-induced mood disorder; F19.282 Other psychoactive substance dependence with psychoactive substance-induced sleep disorder; F20.0 Paranoid schizophrenia
CPT/HCPCS: 93005; 93010; C9803-CS; J0735; U0003; U0005